=== PATIENT | male | born 1965 | race Caucasian/White ===

== ENCOUNTER 2016-11-01 23:22 | Emergency (ER) | payer MEDICARE, OTHER ==
[~2016-11-01] VITALS: Ht 177.8 cm; Wt 95.3 kg
[~2016-11-01 23:22] MED LIST: COREG3.125 MG ORAL; PRADAXA75 MG ORAL; TEMAZEPAM15 MG ORAL
[2016-11-01 23:40] VITALS: BP 110/85
[2016-11-02] VITALS: BP 107/81
[2016-11-02 00:17] LABS: BASOPHILS % (AUTO) 1.3 % (0.0-2.0); LYMPHOCYTES % (AUTO) 33.7 % (20.0-45.0); MEAN CORPUSCULAR HEMOGLOBIN 34.2 PG (27.0-31.0); MEAN CORPUSCULAR HGB CONC 35.2 G/DL (32.0-36.0); MEAN CORPUSCULAR VOLUME 97 FL (80-99); MEAN PLATELET VOLUME 8.2 FL (6.5-10.1); MONOCYTES % (AUTO) 14.5 % (1.0-10.0); NEUTROPHILS % (AUTO) 46.6 % (45.0-75.0); PLATELET COUNT 160 K/UL (150-450); RED CELL DISTRIBUTION WIDTH 11.2 % (11.6-14.8); WHITE BLOOD COUNT 7.8 K/UL (4.8-10.8)
--- NOTE | 2016-11-02 00:23 | Emergency Room Report ---
History of Present Illness General Chief Complaint: Chest Pain Source: Patient Present Illness HPI 51 YO M walk-in with chest pain tonight at friends house. Pain is 9/10, left sided, substernal non-radiating. No assoc sob, nausea/vomiting, sweating. Endorses history of Atrial fib - took Carvedilol BID and Pradaxa BID today. Smokes marijuana. Per EMR, had visit here last 2013. Was admitted for ACS but eloped prior to hospitalist assessing patient. Allergies: Coded Allergies: IBUPROFEN (Unverified Allergy, Unknown, 05/30/14) Patient History Past Medical History: other - AICD, HTN, Atrial Fib Past Surgical History: pacemaker Pertinent Family History: none Social History: Reports: drug use, smoking Immunizations: UTD Reviewed Nursing Documentation: PMH: Agreed, PSxH: Agreed Nursing Documentation-PMH Hx Cardiac Problems: Yes - Afib, Pacemaker, Defibrillator Review of Systems All Other Systems: negative except mentioned in HPI Physical Exam Vital Signs Date Time Temp Pulse Resp B/P Pulse Ox O2 Delivery O2 Flow Rate FiO2 11/01/16 23:32 97.9 37 17 110/85 94 Room Air Sp02 EP Interpretation: reviewed, abnormal, other - Triage vitals by RN are incorrect. On initial assessment, HR was 130s General Appearance: normal inspection, well appearing, no apparent distress, alert, GCS 15, non-toxic Head: normocephalic, atraumatic Eyes: bilateral eye EOMI, bilateral eye PERRL ENT: normal ENT inspection, hearing grossly normal, normal voice Neck: normal inspection, full range of motion, supple, thyroid normal, no meningismus, no bony tend Respiratory: normal inspection, lungs clear, normal breath sounds, no respiratory distress, no retraction, no wheezing Cardiovascular #1: no edema, irregularly irregular Gastrointestinal: normal inspection, normal bowel sounds, non tender, soft, no guarding, no hernia Genitourinary: no CVA tenderness Musculoskeletal: normal inspection, back normal, normal range of motion, Rose Mary' s Sign negative Neurologic: normal inspection, alert, oriented x3, responsive, transport medic III-XII nml as tested, speech normal Psychiatric: normal inspection, judgement/insight normal, mood/affect normal Skin: normal inspection, normal color, no rash, warm/dry Lymphatic: normal inspection Medical Decision Making Diagnostic Impression: Primary Impression: Chest pain Qualified Codes: R07.89 - Other chest pain Additional Impression: Atrial fibrillation Qualified Codes: I48.91 - Unspecified atrial fibrillation ER Course 51 YO M with episode of chest pain. CAD risk factors include HTN, Atrial fib, however BP normal here, Atrial fib is controlled, patient is compliant with meds When talking/agitated, patient's Afib would run to 140/150 When patient asleep, HR is 90 without intervention in ED ASA not given as patient on Pradaxa CXR unchanged from CXR in 2014: no PNA, PTX. + Cardiomegaly Labs: No leuks. H&H stable. No CMP abnormalities. Troponin 0 x2, Q4 hours ECG is Atrial Fib, TWI in v2,3,6 Utox + for MJ, opiates Low suspicion for ACS given 2x negative troponin Concern for narcotic seeking behavior with + opiates on Utox Advised to followup with Cardiology in 2-3 days EKG Diagnostic Results Rate: tachycardiac, other - trial fib ST Segments: no acute changes Rhythm Strip Diag. Results EP Interpretation: yes Rate: 80 Rhythm: other - +PVCs Chest X-Ray Diagnostic Results EP Interpretation: Yes Findings: no consolidation, no effusion, no pneumothorax, no acute cardiopulmonary disease Number of Views: 1 Last Vital Signs Date Time Temp Pulse Resp B/P Pulse Ox O2 Delivery O2 Flow Rate FiO2 11/01/16 23:40 98.0 90 15 110/85 100 Room Air Status: improved Disposition: HOME, SELF-CARE Condition: Improved Referrals: NOT CHOSEN IPA/,REFERRING (PCP) LUCINA ALMONTE M.D. Nov 02, 2016 00:23
[2016-11-02 00:36] LABS: ALANINE AMINOTRANSFERASE 43 U/L (3-41); ALBUMIN/GLOBULIN RATIO 1.4 (1.0-2.7); ANION GAP 13 (5-15); ASPARTATE AMINO TRANSFERASE 44 U/L (5-40); CALCIUM 9.2 mg/dL (8.6-10.2); CARBON DIOXIDE 28 mEQ/L (20-30); CHLORIDE 97 mEQ/L (98-107); CREATININE 0.8 mg/dL (0.7-1.2); GLOMERULAR FILTRATION RATE > 60 mL/min (>60); HEMOLYSIS 4; POTASSIUM 4.2 mEQ/L (3.4-4.9); SODIUM 138 mEQ/L (135-145); TOTAL PROTEIN 7.2 g/dL (6.6-8.7)
[2016-11-02 00:38] LABS: TROPONIN I < 0.30 ng/mL (<=0.30)
[2016-11-02 01:30] VITALS: BP 113/83
[2016-11-02 02:30] VITALS: BP 114/77
[2016-11-02 03:58] LABS: TROPONIN I < 0.30 ng/mL (<=0.30)
[2016-11-02 04:45] VITALS: BP_SYST 116; BP_DIAS 76; BP_DIAS 78
--- NOTE | 2016-11-02 12:28 | Diagnostic Imaging Report ---
Indication: Chest pain Technique: One view of the chest Comparison: 05/30/2014 Findings: There is some pleural fluid at the left lung base. There is probably also some parenchymal consolidation at the left lung base. There is atelectasis at the right lung base. The upper lung rizzo are clear. The heart size is upper limits of normal. There is a left chest AICD Impression: Left basilar pleural fluid and consolidation Right basilar atelectasis Other findings as noted
== END 2016-11-02 04:45 | disposition home or self-care (01) ==
LOC: EMR 23:45
DX: R07.9 Chest pain, unspecified (principal); F17.200 Nicotine dependence, unspecified, uncomplicated; I48.91 Unspecified atrial fibrillation; Z95.810 Presence of automatic (implantable) cardiac defibrillator; Z79.01 Long term (current) use of anticoagulants
CPT/HCPCS: 36415; 71010; 80053; 80300; 82550; 82553; 83880; 84484; 85025; 93005; 99283

== ENCOUNTER 2017-07-04 19:23 | Inpatient (IN) | payer MEDICARE, OTHER ==
[~2017-07-04] VITALS: Ht 177.8 cm; Wt 97.5 kg
[2017-07-04 19:23] VITALS: BP 152/104
[2017-07-04] MEDS ORDERED: Heparin 5000 units/ml inj IV ONE (19:30)
[2017-07-04 19:37] LABS: BASOPHILS % (AUTO) 1.2 % (0.0-2.0); EOSINOPHILS % (AUTO) 2.8 % (0.0-3.0); LYMPHOCYTES % (AUTO) 26.7 % (20.0-45.0); MEAN CORPUSCULAR HEMOGLOBIN 32.6 PG (27.0-31.0); MEAN CORPUSCULAR HGB CONC 32.6 G/DL (32.0-36.0); MEAN CORPUSCULAR VOLUME 100 FL (80-99); MEAN PLATELET VOLUME 7.8 FL (6.5-10.1); MONOCYTES % (AUTO) 9.8 % (1.0-10.0); NEUTROPHILS % (AUTO) 59.4 % (45.0-75.0); PLATELET COUNT 184 K/UL (150-450); RED BLOOD COUNT 4.91 M/UL (4.70-6.10); RED CELL DISTRIBUTION WIDTH 11.3 % (11.6-14.8); WHITE BLOOD COUNT 11.7 K/UL (4.8-10.8)
[2017-07-04 19:45] LABS: PROTHROMBIN TIME 10.2 SEC (9.30-11.50)
[2017-07-04] MEDS ORDERED: Morphine Sulfate 2mg/ml Inj IVP ONE ×4 (19:45)
[2017-07-04] MEDS ORDERED: Morphine Sulfate 4mg/ml Inj IVP ONE (19:45)
[2017-07-04 20:10] LABS: ALANINE AMINOTRANSFERASE 48 U/L (12-78); ANION GAP 10 mmol/L (5-15); ASPARTATE AMINO TRANSFERASE 32 U/L (15-37); CALCIUM 9.4 MG/DL (8.5-10.1); CARBON DIOXIDE 25 MMOL/L (21-32); CHLORIDE 107 MMOL/L (98-107); CKMB 0.7 NG/ML (0.0-3.6); CREATININE 0.8 MG/DL (0.55-1.30); GLOMERULAR FILTRATION RATE > 60 mL/min (>60); POTASSIUM 4.3 MMOL/L (3.5-5.1); SODIUM 142 MMOL/L (136-145); TOTAL PROTEIN 8.1 G/DL (6.4-8.2)
--- NOTE | 2017-07-04 20:24 | Emergency Room Report ---
History of Present Illness General Chief Complaint: Chest Pain Source: Patient Present Illness HPI 52-year-old male with pmhx of HTN, DM, A. fib on eliquis pacemaker and defibrillator, p/w chest pain for 30 minutes. Chest pain started suddenly. Localized to substernal area, no radiation to back or other areas, sharp in nature, gradual in onset, also complains of SOB. + diaphoresis, no n/v. This is the first occurrence of chest pain. Denies fever, chills, cough, abd pain. Denies trauma. Patient states that his last cardiac catheterization was 4 years ago and he was told that he has clean coronaries Patient was given 325 mg aspirin by EMS States that he is allergic to nitroglycerin Allergies: Coded Allergies: GENTAMICIN (Unverified Allergy, Unknown, 07/04/17) IBUPROFEN (Unverified Allergy, Unknown, 05/30/14) NITROGLYCERIN (Unverified Allergy, Unknown, 07/04/17) Patient History Past Medical History: see triage record Past Surgical History: none Pertinent Family History: none Reviewed Nursing Documentation: PMH: Agreed, PSxH: Agreed Nursing Documentation-PMH Hx Cardiac Problems: Yes - CHF, AFIB, 2WIRE PACEMAKER, CARDIOMYOPATHY History Of Psychiatric Problem: Yes - BIPOLAR AND PANIC DISORDER Review of Systems All Other Systems: negative except mentioned in HPI Physical Exam Vital Signs Date Time Temp Pulse Resp B/P (MAP) Pulse Ox O2 Delivery O2 Flow Rate FiO2 07/04/17 19:13 99.0 115 21 152/104 92 Room Air Sp02 EP Interpretation: reviewed, normal General Appearance: alert, GCS 15, non-toxic, severe distress, other - Diaphoretic middle-aged man, appears to be in pain Head: normocephalic, atraumatic Eyes: bilateral eye normal inspection, bilateral eye PERRL, bilateral eye EOMI ENT: normal ENT inspection, normal pharynx, normal voice, moist mucus membranes Neck: normal inspection, full range of motion, supple Respiratory: normal inspection, lungs clear, normal breath sounds, no respiratory distress, no retraction, no wheezing, speaking full sentences, chest symmetrical Cardiovascular #1: normal inspection, no edema, normal capillary refill, tachycardia Cardiovascular #2: 2+ radial (R), 2+ radial (L) Gastrointestinal: normal inspection, non tender, soft, non-distended, no guarding Genitourinary: no CVA tenderness Musculoskeletal: normal inspection, back normal, normal range of motion, non- tender Neurologic: normal inspection, alert, oriented x3, responsive, motor strength/ tone normal, sensory intact, normal gait, speech normal Psychiatric: normal inspection, judgement/insight normal, memory normal Skin: normal inspection, normal color, no rash, warm/dry, well hydrated, normal turgor Medical Decision Making Diagnostic Impression: Primary Impression: ACS (acute coronary syndrome) ER Course 52-year-old male presents with chest pain DDX: ACS vs. CHF vs. pneumonia vs. gastritis/GERD vs. pneumothorax Plan: IV access, obtain labs including troponin, EKG, CXR ASA given by EMS, pain control with morphine Anticipate admission ER course: Patient was treated with ASA by EMS Pain was treated with morphine a total of 8 mg Patient has a remain tachycardic ST elevation noted in inferior leads, faxed EKG to [facility] 10 min after arrival, as it was difficult to obtain good ekg as patient could not remain still Patient received heparin bolus, and 1 L fluids Does not believe that this is acute STEMI Patient feels much better after 8 mg of morphine On previous chart review, patient was noted to leave AMA after being admitted for ACS Possible drug-seeking behavior Patient now improved, appears more comfortable, given Ativan, awake and alert pain much improved Troponin is negative Disposition: Patient requires admission for chest pain. Due to patient's history and comorbidities, patient has increased risk of acute cardiac event. Patient requires admission for further workup, serial troponin, and possible stress test/cath inpatient. D/W hospitalist Dr Soaers Please note that this Emergency Department Report was dictated using [employer]ate[employer] clerk technology software, occasionally this can lead to erroneous entry secondary to interpretation by the dictation equipment. EKG Diagnostic Results EP Interpretation: Yes Rate: normal Rhythm: paced ST Segments: ST elevation ASA given to patient: Y Rhythm Strip EP Interpretation: Yes Rate: 92 Rhythm: intermittently paced rhythm Chest X-ray CXR: Ordered: Yes 1 view Indication: Chest pain EP interpretation: Yes Interpretation: No consolidation, no effusion, no PTX, no acute cardiopulmonary disease Impression: No acute disease Electronically signed by Juan Carlos Marx MD Laboratory Tests Test 07/04/17 19:29 White Blood Count 11.7 K/UL (4.8-10.8) H Red Blood Count 4.91 M/UL (4.70-6.10) Hemoglobin 16.0 G/DL (14.2-18.0) Hematocrit 49.2 % (42.0-52.0) Mean Corpuscular Volume 100 FL (80-99) H Mean Corpuscular Hemoglobin 32.6 PG (27.0-31.0) H Mean Corpuscular Hemoglobin Concent 32.6 G/DL (32.0-36.0) Red Cell Distribution Width 11.3 % (11.6-14.8) L Platelet Count 184 K/UL (150-450) Mean Platelet Volume 7.8 FL (6.5-10.1) Neutrophils (%) (Auto) 59.4 % (45.0-75.0) Lymphocytes (%) (Auto) 26.7 % (20.0-45.0) Monocytes (%) (Auto) 9.8 % (1.0-10.0) Eosinophils (%) (Auto) 2.8 % (0.0-3.0) Basophils (%) (Auto) 1.2 % (0.0-2.0) Prothrombin Time 10.2 SEC (9.30-11.50) Prothrombin Time INR 1.0 (0.9-1.1) PTT 28 SEC (23-33) Sodium Level 142 MMOL/L (136-145) Potassium Level 4.3 MMOL/L (3.5-5.1) Chloride Level 107 MMOL/L (98-107) Carbon Dioxide Level 25 MMOL/L (21-32) Anion Gap 10 mmol/L (5-15) Blood Urea Nitrogen 21 mg/dL (7-18) H Creatinine 0.8 MG/DL (0.55-1.30) Estimate Glomerular Filtration Rate > 60 mL/min (>60) Glucose Level 95 MG/DL (74-106) Calcium Level 9.4 MG/DL (8.5-10.1) Total Bilirubin 0.6 MG/DL (0.2-1.0) Aspartate Amino Transferase (AST) 32 U/L (15-37) Alanine Aminotransferase (ALT) 48 U/L (12-78) Alkaline Phosphatase 55 U/L (46-116) Total Creatine Kinase 72 U/L (26-308) Creatine Kinase MB 0.7 NG/ML (0.0-3.6) Creatine Kinase MB Relative Index 0.9 Troponin I 0.005 ng/mL (0.000-0.056) Pro-B-Type Natriuretic Peptide 348 pg/mL (0-125) H Total Protein 8.1 G/DL (6.4-8.2) Albumin 4.1 G/DL (3.4-5.0) Globulin 4.0 g/dL Albumin/Globulin Ratio 1.0 (1.0-2.7) Last Vital Signs Date Time Temp Pulse Resp B/P (MAP) Pulse Ox O2 Delivery O2 Flow Rate FiO2 07/04/17 19:23 56 21 Room Air 07/04/17 19:23 99.0 152/104 92 Juan Carlos Marx M.D. Jul 04, 2017 20:24
[2017-07-04] MEDS ORDERED: LORazepam Inj 2mg/ml 1ml IV ONE (21:00)
[2017-07-04 21:23] VITALS: BP 155/88
[2017-07-04 23:23] VITALS: BP 132/95
[2017-07-05] VITALS (7 sets, daily range): BP systolic 115–146; BP diastolic 70–101
[2017-07-05] MEDS ORDERED: PRADAXA150 MG ORAL (00:34)
[2017-07-05] MEDS ORDERED: ALUM-MAG HYDRO360 ML PO (00:34)
[2017-07-05] MEDS ORDERED: ROXICODONE15 MG ORAL (00:34)
[2017-07-05] MEDS ORDERED: COREG6.25 MG ORAL (00:34)
[2017-07-05] MEDS ORDERED: KLONOPIN1 MG ORAL (00:34)
[2017-07-05] MEDS ORDERED: XARELTO20 MG ORAL (00:34)
[2017-07-05] MEDS ORDERED: MILK OF MA400 MG/51 ORAL (00:34)
[2017-07-05] MEDS ORDERED: ACETAMINOPHEN325 M1 ORAL (00:34)
[2017-07-05] MEDS ORDERED: LORAZEPAM1 MG ORAL (00:34)
[2017-07-05] MEDS ORDERED: NORCO 5-325 TA1 EACH ORAL (00:34)
[2017-07-05] MEDS ORDERED: CELEXA10 MG ORAL (00:34)
[2017-07-05] MEDS ORDERED: DIGOXIN125 MCG ORAL (00:34)
[2017-07-05] MEDS ORDERED: TEMAZEPAM15 MG ORAL (00:34)
[2017-07-05] MEDS ORDERED: MELOXICAM15 MG PO (00:34)
[2017-07-05] MEDS ORDERED: oxyCODONE 15mg IR tab ORAL PRN (01:30)
[2017-07-05] MEDS ORDERED: Miralax 17gm pkt ORAL PRN (01:30)
[2017-07-05] MEDS ORDERED: Enalaprilat 2.5mg/2ml Inj IV PRN (01:30)
[2017-07-05] MEDS ORDERED: Albuterol/Ipratropium 3ml neb HHN PRN (01:30)
[2017-07-05] MEDS ORDERED: dilTIAZem HCl 25mg/5ml Inj IV PRN (01:30)
[2017-07-05] MEDS: Morphine Sulfate 2mg/ml Inj IVP PRN ×5 (02:11→22:03)
[2017-07-05] MEDS: LORazepam Inj 2mg/ml 1ml IV PRN ×4 (02:31→20:00)
[2017-07-05] MEDS: Citalopram Hydrobromide 10mg Tab ORAL SCH (08:25)
[2017-07-05] MEDS: Digoxin 0.125mg tab ORAL SCH (08:26)
[2017-07-05] MEDS ORDERED: Carvedilol 25mg Tab ORAL SCH (09:00)
--- NOTE | 2017-07-05 10:04 | Diagnostic Imaging Report ---
Indication: Chest pain Technique: One view of the chest Comparison: 11/01/2016 Findings: Again demonstrated is a biventricular AICD. There is also a transcutaneous pacer pad overlying the right chest. The lungs and pleural spaces are clear. The heart is mildly enlarged. Impression: No acute process Cardiomegaly Other findings as described
[2017-07-05] MEDS ORDERED: Flu Vaccine Quadrivalent 0.5ml IM ONE (12:00)
[2017-07-05] MEDS ORDERED: Pneumococcal Vaccine 25mcg/0.5ml IM ONE (12:00)
--- NOTE | 2017-07-05 12:36 | History and Physical ---
History of Present Illness General Date patient seen: Jul 05, 2017 Reason for Hospitalization: Chest Pain Present Illness HPI 52-year-old male with pmhx of HTN, DM, A. fib on eliquis pacemaker and defibrillator, p/w chest pain for 30 minutes. Chest pain started suddenly. Localized to substernal area, no radiation to back or other areas, sharp in nature, gradual in onset, also complains of SOB. + diaphoresis, no n/v. His EKG was faxed to [facility], He was not a candidate for acute intervention. Allergies: Coded Allergies: GENTAMICIN (Unverified Allergy, Unknown, 07/04/17) IBUPROFEN (Unverified Allergy, Unknown, 05/30/14) NITROGLYCERIN (Unverified Allergy, Unknown, 07/04/17) Medication History Scheduled Carvedilol (Coreg), 25 MG ORAL EVERY 12 HOURS, (Reported) Carvedilol (Coreg), 6.25 MG ORAL EVERY 12 HOURS, (Reported) Citalopram Hydrobromide (Celexa), 10 MG ORAL DAILY, (Reported) Clonazepam* (Klonopin*), 1 MG ORAL BID, (Reported) Dabigatran Etexilate Mesylate (Pradaxa), 150 MG ORAL DAILY, (Reported) Dabigatran Etexilate Mesylate* (Pradaxa*), 150 MG ORAL DAILY, (Reported) Digoxin* (Digoxin*), 62.5 MCG ORAL DAILY, (Reported) Magnesium Hydroxide* (Milk Of Magnesia*), 30 ML ORAL Q6HR, (Reported) Meloxicam* (Meloxicam*), 15 MG PO DAILY, (Reported) Rivaroxaban (Xarelto), 20 MG ORAL DAILY, (Reported) Temazepam (Temazepam*), 30 MG ORAL BEDTIME, (Reported) Temazepam (Temazepam*), 15 MG ORAL BEDTIME, (Reported) Scheduled PRN Acetaminophen* (Acetaminophen 325MG Tablet*), 650 MG ORAL Q4H PRN for Mild Pain (Pain Scale 1-3), (Reported) Hydrocodone Bit/Acetaminophen 5-325* ([place] 5-325*), 1 TAB ORAL Q8HR PRN for For Pain, (Reported) Lorazepam* (Lorazepam*), 1 MG ORAL EVERY 6 HOURS PRN for For Anxiety, (Reported) OXYCODONE HCl* (Roxicodone*), 15 MG ORAL Q8HR PRN for Severe Pain (Pain Scale 7- 10), (Reported) Miscellaneous Medications Mag Hydrox/Al Hydrox/Simeth (Alum-Mag Hydroxide-Simeth Liq), 200 ML PO, ( Reported) Patient History Healthcare decision maker Resuscitation status Full Code Advanced Directive on File Past Medical/Surgical History Past Medical/Surgical History: (1) Atrial fibrillation (2) AICD (automatic cardioverter/defibrillator) present (3) Anxiety Review of Systems Constitutional: Reports: no symptoms Eye: Reports: no symptoms Physical Exam General Appearance: WD/WN Lines, tubes and drains: peripheral HEENT: normocephalic, atraumatic, PERRL Neck: non-tender Respiratory/Chest: chest wall non-tender, lungs clear, decreased breath sounds Breasts: no masses Cardiovascular/Chest: normal peripheral pulses Abdomen: normal bowel sounds, soft, hyperactive bowel sounds Genitourinary/Rectal: normal rectal exam, normal prostate exam Extremities: normal range of motion Last 24 Hour Vital Signs Date Time Temp Pulse Resp B/P (MAP) Pulse Ox O2 Delivery O2 Flow Rate FiO2 07/05/17 11:26 96.6 76 20 146/92 95 Room Air 07/05/17 08:34 103 20 Room Air 07/05/17 08:30 97.5 64 20 130/95 91 Room Air 07/05/17 08:26 108 07/05/17 08:25 108 115/70 07/05/17 08:00 108 07/05/17 04:00 97.0 79 20 115/70 98 Room Air 07/05/17 04:00 108 07/05/17 01:40 97.7 94 20 120/95 99 Room Air 07/05/17 00:51 98.4 78 17 135/99 97 Room Air 07/05/17 00:51 98.4 78 17 135/99 97 Room Air 07/04/17 23:23 98.4 95 19 132/95 97 Room Air 07/04/17 21:23 98.8 88 18 155/88 97 Room Air 07/04/17 20:19 98.8 07/04/17 20:19 98.8 07/04/17 20:19 98.8 07/04/17 20:19 98.8 07/04/17 19:23 56 21 Room Air 07/04/17 19:23 99.0 56 21 152/104 92 Room Air 07/04/17 19:13 99.0 115 21 152/104 92 Room Air Intake and Output 07/05/17 07/06/17 19:00 07:00 Intake Total 240 ml Balance 240 ml Intake Oral 240 ml Laboratory Tests Test 07/04/17 19:29 07/05/17 08:00 White Blood Count 11.7 K/UL (4.8-10.8) H Red Blood Count 4.91 M/UL (4.70-6.10) Hemoglobin 16.0 G/DL (14.2-18.0) Hematocrit 49.2 % (42.0-52.0) Mean Corpuscular Volume 100 FL (80-99) H Mean Corpuscular Hemoglobin 32.6 PG (27.0-31.0) H Mean Corpuscular Hemoglobin Concent 32.6 G/DL (32.0-36.0) Red Cell Distribution Width 11.3 % (11.6-14.8) L Platelet Count 184 K/UL (150-450) Mean Platelet Volume 7.8 FL (6.5-10.1) Neutrophils (%) (Auto) 59.4 % (45.0-75.0) Lymphocytes (%) (Auto) 26.7 % (20.0-45.0) Monocytes (%) (Auto) 9.8 % (1.0-10.0) Eosinophils (%) (Auto) 2.8 % (0.0-3.0) Basophils (%) (Auto) 1.2 % (0.0-2.0) Prothrombin Time 10.2 SEC (9.30-11.50) Prothromb Time International Ratio 1.0 (0.9-1.1) Activated Partial Thromboplast Time 28 SEC (23-33) Sodium Level 142 MMOL/L (136-145) Potassium Level 4.3 MMOL/L (3.5-5.1) Chloride Level 107 MMOL/L (98-107) Carbon Dioxide Level 25 MMOL/L (21-32) Anion Gap 10 mmol/L (5-15) Blood Urea Nitrogen 21 mg/dL (7-18) H Creatinine 0.8 MG/DL (0.55-1.30) Estimat Glomerular Filtration Rate > 60 mL/min (>60) Glucose Level 95 MG/DL (74-106) Calcium Level 9.4 MG/DL (8.5-10.1) Total Bilirubin 0.6 MG/DL (0.2-1.0) Aspartate Amino Transf (AST/SGOT) 32 U/L (15-37) Alanine Aminotransferase (ALT/SGPT) 48 U/L (12-78) Alkaline Phosphatase 55 U/L (46-116) Total Creatine Kinase 72 U/L (26-308) Creatine Kinase MB 0.7 NG/ML (0.0-3.6) Creatine Kinase MB Relative Index 0.9 Troponin I 0.005 ng/mL (0.000-0.056) 0.005 ng/mL (0.000-0.056) Pro-B-Type Natriuretic Peptide 348 pg/mL (0-125) H Total Protein 8.1 G/DL (6.4-8.2) Albumin 4.1 G/DL (3.4-5.0) Globulin 4.0 g/dL Albumin/Globulin Ratio 1.0 (1.0-2.7) Height (Feet): 5 Height (Inches): 10.00 Weight (Pounds): 215 Medications Current Medications Medications (Trade) Dose Ordered Sig/Wm Route PRN Reason Start Time Stop Time Status Last Admin Dose Admin Acetaminophen (Tylenol) 650 mg Q4H PRN ORAL FEVER 07/05/17 01:30 08/04/17 01:29 Albuterol/ Ipratropium (Albuterol/ Ipratropium) 3 ml Q4H PRN HHN Shortness of Breath 07/05/17 01:30 07/10/17 01:29 Carvedilol (Coreg) 25 mg EVERY 12 HOURS ORAL 07/05/17 09:00 08/04/17 08:59 07/05/17 08:25 Citalopram Hydrobromide (celeXA) 10 mg DAILY ORAL 07/05/17 09:00 08/04/17 08:59 07/05/17 08:25 Dabigatran (Pradaxa) 150 mg DAILY ORAL 07/05/17 09:00 08/04/17 08:59 UNV Digoxin (Lanoxin) 0.0625 mg DAILY ORAL 07/05/17 09:00 08/04/17 08:59 07/05/17 08:26 Diltiazem HCl (Cardizem) 10 mg Q1H PRN IV heart rate more than 120, 07/05/17 01:30 08/04/17 01:29 Enalaprilat (Vasotec) 2.5 mg Q6H PRN IV sbp more than 160 07/05/17 01:30 08/04/17 01:29 Lorazepam (Ativan 2mg/ml 1ml) 1 mg Q4H PRN IV For Anxiety 07/05/17 01:45 07/12/17 01:44 07/05/17 08:22 Morphine Sulfate (Morphine Sulfate) 2 mg Q4H PRN IVP severe Pain (Pain Scale 7-10) 07/05/17 01:30 07/12/17 01:29 07/05/17 11:17 Ondansetron HCl (Zofran) 4 mg Q6H PRN IVP Nausea & Vomiting 07/05/17 01:30 08/04/17 01:29 Oxycodone HCl (Roxicodone) 15 mg Q8H PRN ORAL Severe Pain (Pain Scale 7-10) 07/05/17 01:30 07/12/17 01:29 Polyethylene Glycol (Miralax) 17 gm DAILYPRN PRN ORAL Constipation 07/05/17 01:30 08/04/17 01:29 Temazepam (Restoril) 15 mg HSPRN PRN ORAL Insomnia 07/05/17 01:30 07/12/17 01:29 Assessment/Plan Problem List: (1) ACS (acute coronary syndrome) ICD Codes: I20.0 - Unstable angina SNOMED: 212304782 (2) Atrial fibrillation ICD Codes: I48.91 - Unspecified atrial fibrillation SNOMED: 79420158 (3) Chronic back pain ICD Codes: M54.9 - Dorsalgia, unspecified; G89.29 - Other chronic pain SNOMED: 186460826 (4) AICD (automatic cardioverter/defibrillator) present ICD Codes: Z95.810 - Presence of automatic (implantable) cardiac defibrillator SNOMED: 85290339, 793621767 (5) Anxiety ICD Codes: F41.9 - Anxiety disorder, unspecified SNOMED: 09738941 Assessment/Plan serial ekg, troponin, echo cardiology evaluation pain management MARCIN RIVERA Jul 05, 2017 12:35
--- NOTE | 2017-07-05 15:37 | Cardiology Report ---
APPROVED REPORT EXAM: Two-dimensional and M-mode echocardiogram with Doppler and color Doppler. INDICATION Left Ventricular Function M-Mode DIMENSIONS IVSd1.4 (0.7-1.1cm)Left Atrium (MM)5.0 (1.6-4.0cm) LVDd5.7 (3.5-5.6cm)Aortic Root3.3 (2.0-3.7cm) PWd1.0 (0.7-1.1cm)Aortic Cusp Exc.2.2 (1.5-2.0cm) LVDs4.3 (2.5-4.0cm) PWs1.9 cm Technically difficult study due to poor acoustic windows. Mild left ventricular enlargement. LV mid to distal hypokinesis. Abnormal basal inferoseptum movement. Global left ventricular hypokinesis. Left ventricular ejection fraction estimated to be 40 %. Mild left ventricular hypertrophy. Anterior Echo-free space, may be due to pericardial fat or effusion. All other cardiac chamber sizes are within normal limits. Mild left atrial enlargement. Moderate right atrial enlargement. Normal right ventricular chamber size. Mild focal aortic valve sclerosis with adequate cusp excursion. Mildly thickened mitral valve leaflets with normal excursion. Mild mitral annulus and aortic root calcification. Normal pulmonic valve structure. Normal tricuspid valve structure. IVC dilated at 2.3 cm without physiologic collapse, estimated RAP is 10 mmHg. Pacemaker wire present in the right side chambers. A color flow and spectral Doppler study was performed and revealed: No aortic regurgitation. Mild mitral regurgitation. Left ventricular diastolic function cannot be determined due to A-Fib. Mild tricuspid regurgitation. Tricuspid systolic velocities suggests peak right ventricular systolic pressure of 26 mmHg. Mild pulmonic regurgitation present.
--- NOTE | 2017-07-05 18:58 | Cardiology Progress Note ---
Assessment/Plan Assessment/Plan [id number] reportedly pristine arteries on cath at [facility] 4-5 years ago per pt guideline directed med therapy Objective Last 24 Hour Vital Signs Date Time Temp Pulse Resp B/P (MAP) Pulse Ox O2 Delivery O2 Flow Rate FiO2 07/05/17 16:00 75 07/05/17 15:52 98.8 85 20 145/76 93 Room Air 07/05/17 12:00 77 07/05/17 11:26 96.6 76 20 146/92 95 Room Air 07/05/17 08:34 103 20 Room Air 07/05/17 08:30 97.5 64 20 130/95 91 Room Air 07/05/17 08:26 108 07/05/17 08:25 108 115/70 07/05/17 08:00 108 07/05/17 04:00 97.0 79 20 115/70 98 Room Air 07/05/17 04:00 108 07/05/17 01:40 97.7 94 20 120/95 99 Room Air 07/05/17 00:51 98.4 78 17 135/99 97 Room Air 07/05/17 00:51 98.4 78 17 135/99 97 Room Air 07/04/17 23:23 98.4 95 19 132/95 97 Room Air 07/04/17 21:23 98.8 88 18 155/88 97 Room Air 07/04/17 20:19 98.8 07/04/17 20:19 98.8 07/04/17 20:19 98.8 07/04/17 20:19 98.8 07/04/17 19:23 56 21 Room Air 07/04/17 19:23 99.0 56 21 152/104 92 Room Air 07/04/17 19:13 99.0 115 21 152/104 92 Room Air Intake and Output 07/05/17 07/06/17 19:00 07:00 Intake Total 840 ml Balance 840 ml Intake Oral 840 ml # Voids 1 Laboratory Tests Test 07/04/17 19:29 07/05/17 08:00 White Blood Count 11.7 K/UL (4.8-10.8) H Red Blood Count 4.91 M/UL (4.70-6.10) Hemoglobin 16.0 G/DL (14.2-18.0) Hematocrit 49.2 % (42.0-52.0) Mean Corpuscular Volume 100 FL (80-99) H Mean Corpuscular Hemoglobin 32.6 PG (27.0-31.0) H Mean Corpuscular Hemoglobin Concent 32.6 G/DL (32.0-36.0) Red Cell Distribution Width 11.3 % (11.6-14.8) L Platelet Count 184 K/UL (150-450) Mean Platelet Volume 7.8 FL (6.5-10.1) Neutrophils (%) (Auto) 59.4 % (45.0-75.0) Lymphocytes (%) (Auto) 26.7 % (20.0-45.0) Monocytes (%) (Auto) 9.8 % (1.0-10.0) Eosinophils (%) (Auto) 2.8 % (0.0-3.0) Basophils (%) (Auto) 1.2 % (0.0-2.0) Prothrombin Time 10.2 SEC (9.30-11.50) Prothromb Time International Ratio 1.0 (0.9-1.1) Activated Partial Thromboplast Time 28 SEC (23-33) Sodium Level 142 MMOL/L (136-145) Potassium Level 4.3 MMOL/L (3.5-5.1) Chloride Level 107 MMOL/L (98-107) Carbon Dioxide Level 25 MMOL/L (21-32) Anion Gap 10 mmol/L (5-15) Blood Urea Nitrogen 21 mg/dL (7-18) H Creatinine 0.8 MG/DL (0.55-1.30) Estimat Glomerular Filtration Rate > 60 mL/min (>60) Glucose Level 95 MG/DL (74-106) Calcium Level 9.4 MG/DL (8.5-10.1) Total Bilirubin 0.6 MG/DL (0.2-1.0) Aspartate Amino Transf (AST/SGOT) 32 U/L (15-37) Alanine Aminotransferase (ALT/SGPT) 48 U/L (12-78) Alkaline Phosphatase 55 U/L (46-116) Total Creatine Kinase 72 U/L (26-308) Creatine Kinase MB 0.7 NG/ML (0.0-3.6) Creatine Kinase MB Relative Index 0.9 Troponin I 0.005 ng/mL (0.000-0.056) 0.005 ng/mL (0.000-0.056) Pro-B-Type Natriuretic Peptide 348 pg/mL (0-125) H Total Protein 8.1 G/DL (6.4-8.2) Albumin 4.1 G/DL (3.4-5.0) Globulin 4.0 g/dL Albumin/Globulin Ratio 1.0 (1.0-2.7) PAWAN MTZ Jul 05, 2017 18:58
[2017-07-05] MEDS: Carvedilol 6.25mg Tab ORAL SCH (21:12)
[2017-07-06] MEDS: Morphine Sulfate 10mg/5ml Oral Soln ud ORAL PRN ×2 (00:16→05:18)
[2017-07-06 00:22] VITALS: BP 129/98
[2017-07-06] MEDS: Morphine Sulfate 2mg/ml Inj IVP PRN ×2 (02:18→09:07)
[2017-07-06 04:16] VITALS: BP 114/78
[2017-07-06] MEDS: LORazepam Inj 2mg/ml 1ml IV PRN (06:14)
[2017-07-06 08:00] LABS: EOSINOPHILS % (AUTO) 3.7 % (0.0-3.0); LYMPHOCYTES % (AUTO) 15.9 % (20.0-45.0); MEAN CORPUSCULAR HEMOGLOBIN 35.2 PG (27.0-31.0); MEAN CORPUSCULAR HGB CONC 35.1 G/DL (32.0-36.0); MEAN CORPUSCULAR VOLUME 100 FL (80-99); MEAN PLATELET VOLUME 8.4 FL (6.5-10.1); MONOCYTES % (AUTO) 12.1 % (1.0-10.0); NEUTROPHILS % (AUTO) 67.5 % (45.0-75.0); PLATELET COUNT 160 K/UL (150-450); RED BLOOD COUNT 4.23 M/UL (4.70-6.10); WHITE BLOOD COUNT 7.3 K/UL (4.8-10.8)
[2017-07-06 08:08] LABS: INR 0.9 (0.9-1.1); PROTHROMBIN TIME 9.9 SEC (9.30-11.50)
[2017-07-06 08:18] VITALS: BP 143/97
[2017-07-06 08:42] LABS: CHOLESTEROL 116 MG/DL (< 200); CHOLESTEROL/HDL RATIO 1.9 (3.3-4.4); THYROID STIMULATING HORMONE 1.277 uiU/mL (0.360-3.740)
[2017-07-06 08:48] LABS: CRP QUANT < 0.0 mg/dL (0.00-0.90)
[2017-07-06] MEDS ORDERED: Morphine Sulfate 4mg/ml Inj ONE ×2 (08:49→08:58)
[2017-07-06] MEDS ORDERED: Xarelto 10mg tab ORAL SCH (09:00)
[2017-07-06] MEDS: Citalopram Hydrobromide 10mg Tab ORAL SCH (09:05)
[2017-07-06] MEDS: Digoxin 0.125mg tab ORAL SCH (09:05)
[2017-07-06 09:06] VITALS: BP 143/97
[2017-07-06] MEDS: Carvedilol 6.25mg Tab ORAL SCH (09:06)
--- NOTE | 2017-07-06 10:15 | Consultation ---
DATE OF CONSULTATION: 07/05/2017 CARDIOLOGY CONSULTATION CONSULTING PHYSICIAN: Grabiel Wall M.D. REFERRING PHYSICIAN: Keith Soares M.D. REASON FOR REFERRAL: Chest pain. HISTORY OF PRESENT ILLNESS: This is a middle-aged gentleman who has a history of cardiomyopathy, atrial fibrillation that is permanent. He has had atrial fibrillation on prior occasions. He says he has had several other issues including cardiac arrest and cardiomyopathy with ejection fractions down into 20s, eventually up to the 30s. He has had a defibrillator placed and subsequently had a generator replacement approximately 5 months ago and has been at [facility] apparently and has subsequently transferred to a convalescent facility. In the convalescent facility, he was unable to get his Klonopin and eventually was having a lot of reaction to withdrawal from that including palpitations and chest pains and eventually got very concerned. Paramedics were summoned. The patient was brought to the emergency room. He says that initially in the emergency room, they thought that he was having a heart attack. They were trying to transfer him to [facility], but apparently that did not happen. Nevertheless, apparently, that was not an issue subsequently according to his description. He indicates the patient has been admitted to the hospital here at [facility] and is now doing better, although he still has not got his Klonopin the way he wants to and he is still feeling somewhat anxious. The records from [facility] evaluation have indicated that the patient has had atypical chest pain, asking for narcotic, using chest pain as a way to ask for narcotics. However, all cardiac enzymes are negative. PAST MEDICAL HISTORY: Positive for history of as mentioned cardiomyopathy and questionable SD, although he questions if that is actually accurate, but he has a pacemaker defibrillator in place. He had cardiomyopathy in 2008 eventually, ejection fraction was 20%. Over the next ensuing few years, he has had improvement in his ejection fraction in the 40s. He also has a history of hypertensive heart disease, congestive heart failure, chronic pain syndrome, atrial fibrillation, and has had endocarditis. He says that he has had fasciectomy. The patient has had a cardiac catheterization according to himself that was performed 4-5 years ago at [facility] and he was told that his "his arteries are pristine". ALLERGIES: Gentamicin, nitroglycerin, and ibuprofen. SOCIAL HISTORY: He was born in [place]. He grew up in [place]. parents were . The patient indicates that he saw his father to have a nervous breakdown. He is the youngest of all siblings, has never . The patient has 2 biological sons. 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 REVIEW OF SYSTEMS: Review of systems is very difficult to obtain. The patient has multiple tangential responses. PHYSICAL EXAMINATION: GENERAL: Physical examination shows him to be in no respiratory distress. He appears quite anxious and at times angry with the history that he provides me with his events that [facility] where he [facility] transferred out of and at times quite angry and anxious and at times tearful. He even walked outside running after me in the halls to tell me more information about his likes and dislikes. NECK: Anyway his neck is supple. No jugular venous distention. LUNGS: Clear to auscultation and percussion. CARDIAC: Irregular, not tachycardic, not bradycardic. No heaves, thrills, or gallops noted. ABDOMEN: Soft and nontender. Positive bowel sounds. EXTREMITIES: There is no clubbing, cyanosis, nor edema. NEUROLOGICAL: He is awake, alert, responsive, and as mentioned, he is quite agile and is mobile from the room to outside. LABORATORY AND DIAGNOSTIC DATA: Telemetry shows atrial fibrillation, ventricular paced rhythm. Echocardiogram preliminary report shows EF of 40%, IVC of 2.3 without physiological collapse. Moderate right atrial enlargement, right ventricular size, aortic cusp sclerosis, no aortic regurgitation, mild mitral regurgitation, and tricuspid regurgitation. Pulmonary systolic pressures of 26. His EKG again shows atrial fibrillation with ventricular response, appears to be relatively controlled. He has intermittent V-pacing and intermittent spontaneous conduction. His other laboratories include white count 11.7. Hemoglobin 16 and platelet count of 184. His sodium 140, potassium 4.3, chloride 107, bicarbonate 25, BUN is 21, creatinine 0.8, and glucose of 95. Two sets of cardiac enzymes negative. ProBNP is only 340. Liver function tests are normal. Coagulations, INR 1.0. A chest x-ray was performed showing no acute processes. Cardiomegaly was noted. An echocardiogram on final reading shows global hypokinesis, ejection fraction of 40%. His vital signs is blood pressure is 145/76 with a heart rate of 85, temperature 98.8 degrees. ASSESSMENT AND PLAN: 1. Cardiomyopathy, likely nonischemic. 2. History of atrial fibrillation, permanent. 3. History of intracardiac defibrillator placement. 4. History of possibly cardiac arrest, not confirmed. 5. History of recurrent chest pains. 6. Severe anxiety. 7. History of medication-seeking behavior according to old records. Dr. Soares, this patient was seen in cardiac consultation in light of the fact that he has had a cardiac catheterization and was told he had pristine vessels, I doubt that he had coronary syndrome. Most likely his symptoms are related to anxiety. Because he has these episodes of chest pain that he describes as a "bang", I would have his intracardiac defibrillator interrogated to make sure he does not have any ICD discharges and to address if there were any discharges. In the meantime, he should be continued on his medication. He should be on chronic anticoagulation for stroke prevention. He previously apparently was on Xarelto, but he was switched to Eliquis and that he could be continued on either of those medication. Coreg 6.25 mg twice a day to be continued and digoxin 0.125 mg, he says he has been taking previously and I am not sure why he is not on any SLICK inhibitors, but should be considered per guideline directed medical therapy and he should certainly be seen by psychiatry for further evaluation. Grabiel Wall M.D. DR: ELDER JOB#: [id number] CC:
--- NOTE | 2017-07-06 10:26 | Consultation ---
History of Present Illness General Date patient seen: Jul 06, 2017 Chief Complaint: Chest Pain Present Illness Allergies: Coded Allergies: GENTAMICIN (Unverified Allergy, Unknown, 07/04/17) IBUPROFEN (Unverified Allergy, Unknown, 05/30/14) NITROGLYCERIN (Unverified Allergy, Unknown, 07/04/17) Medication History Scheduled Carvedilol (Coreg), 25 MG ORAL EVERY 12 HOURS, (Reported) Carvedilol (Coreg), 6.25 MG ORAL EVERY 12 HOURS, (Reported) Citalopram Hydrobromide (Celexa), 10 MG ORAL DAILY, (Reported) Clonazepam* (Klonopin*), 1 MG ORAL BID, (Reported) Dabigatran Etexilate Mesylate (Pradaxa), 150 MG ORAL DAILY, (Reported) Dabigatran Etexilate Mesylate* (Pradaxa*), 150 MG ORAL DAILY, (Reported) Digoxin* (Digoxin*), 62.5 MCG ORAL DAILY, (Reported) Magnesium Hydroxide* (Milk Of Magnesia*), 30 ML ORAL Q6HR, (Reported) Meloxicam* (Meloxicam*), 15 MG PO DAILY, (Reported) Rivaroxaban (Xarelto), 20 MG ORAL DAILY, (Reported) Temazepam (Temazepam*), 30 MG ORAL BEDTIME, (Reported) Temazepam (Temazepam*), 15 MG ORAL BEDTIME, (Reported) Scheduled PRN Acetaminophen* (Acetaminophen 325MG Tablet*), 650 MG ORAL Q4H PRN for Mild Pain (Pain Scale 1-3), (Reported) Hydrocodone Bit/Acetaminophen 5-325* ([place] 5-325*), 1 TAB ORAL Q8HR PRN for For Pain, (Reported) Lorazepam* (Lorazepam*), 1 MG ORAL EVERY 6 HOURS PRN for For Anxiety, (Reported) OXYCODONE HCl* (Roxicodone*), 15 MG ORAL Q8HR PRN for Severe Pain (Pain Scale 7- 10), (Reported) Miscellaneous Medications Mag Hydrox/Al Hydrox/Simeth (Alum-Mag Hydroxide-Simeth Liq), 200 ML PO, ( Reported) Patient History Healthcare decision maker Resuscitation status Full Code Advanced Directive on File Physical Exam Last 24 Hour Vital Signs Date Time Temp Pulse Resp B/P (MAP) Pulse Ox O2 Delivery O2 Flow Rate FiO2 10/27/17 09:06 96 143/97 07/06/17 09:05 96 07/06/17 08:18 98.6 96 20 143/97 96 Room Air 07/06/17 04:16 97.0 106 20 114/78 96 Room Air 07/06/17 04:00 106 07/06/17 00:22 97.2 92 22 129/98 96 Room Air 07/06/17 00:00 92 07/05/17 21:12 88 146/101 07/05/17 20:11 97.2 88 22 146/101 95 Room Air 07/05/17 20:00 80 07/05/17 16:00 75 07/05/17 15:52 98.8 85 20 145/76 93 Room Air 07/05/17 12:00 77 07/05/17 11:26 96.6 76 20 146/92 95 Room Air Laboratory Tests Test 07/06/17 04:45 White Blood Count 7.3 K/UL (4.8-10.8) Red Blood Count 4.23 M/UL (4.70-6.10) L Hemoglobin 14.9 G/DL (14.2-18.0) Hematocrit 42.5 % (42.0-52.0) Mean Corpuscular Volume 100 FL (80-99) H Mean Corpuscular Hemoglobin 35.2 PG (27.0-31.0) H Mean Corpuscular Hemoglobin Concent 35.1 G/DL (32.0-36.0) Red Cell Distribution Width 11.0 % (11.6-14.8) L Platelet Count 160 K/UL (150-450) Mean Platelet Volume 8.4 FL (6.5-10.1) Neutrophils (%) (Auto) 67.5 % (45.0-75.0) Lymphocytes (%) (Auto) 15.9 % (20.0-45.0) L Monocytes (%) (Auto) 12.1 % (1.0-10.0) H Eosinophils (%) (Auto) 3.7 % (0.0-3.0) H Basophils (%) (Auto) 1.0 % (0.0-2.0) Prothrombin Time 9.9 SEC (9.30-11.50) Prothromb Time International Ratio 0.9 (0.9-1.1) Activated Partial Thromboplast Time 27 SEC (23-33) Troponin I 0.003 ng/mL (0.000-0.056) C-Reactive Protein, Quantitative < 0.0 mg/dL (0.00-0.90) L Triglycerides Level 51 MG/DL (0-200) Cholesterol Level 116 MG/DL (< 200) LDL Cholesterol 51 mg/dL (<100) HDL Cholesterol 61 MG/DL (40-60) H Cholesterol/HDL Ratio 1.9 (3.3-4.4) L Thyroid Stimulating Hormone (TSH) 1.277 uiU/mL (0.360-3.740) Height (Feet): 5 Height (Inches): 10.00 Weight (Pounds): 215 Medications Current Medications Medications (Trade) Dose Ordered Sig/Wm Route PRN Reason Start Time Stop Time Status Last Admin Dose Admin Acetaminophen (Tylenol) 650 mg Q4H PRN ORAL FEVER 07/05/17 01:30 08/04/17 01:29 Acetaminophen/ Hydrocodone Bitart ([place] 10/325) 1 ea Q4H PRN ORAL severe pain 07/06/17 10:15 07/13/17 10:14 UNV Baclofen (Lioresal) 10 mg THREE TIMES A DAY PRN ORAL muscle spasm 07/06/17 10:15 08/05/17 10:14 UNV Carvedilol (Coreg) 6.25 mg EVERY 12 HOURS ORAL 07/05/17 21:00 08/04/17 20:59 07/06/17 09:06 Citalopram Hydrobromide (celeXA) 10 mg DAILY ORAL 07/05/17 09:00 08/04/17 08:59 07/06/17 09:05 Clonazepam (KlonoPIN) 1 mg BID ORAL 07/06/17 09:00 07/13/17 08:59 07/06/17 09:06 Digoxin (Lanoxin) 0.0625 mg DAILY ORAL 07/05/17 09:00 08/04/17 08:59 07/06/17 09:05 Diltiazem HCl (Cardizem) 10 mg Q1H PRN IV heart rate more than 120, 07/05/17 01:30 08/04/17 01:29 Enalaprilat (Vasotec) 2.5 mg Q6H PRN IV sbp more than 160 07/05/17 01:30 08/04/17 01:29 Lorazepam (Ativan 2mg/ml 1ml) 1 mg Q4H PRN IV For Anxiety 07/05/17 01:45 07/12/17 01:44 07/06/17 06:14 Methocarbamol (Robaxin) 500 mg Q8H PRN ORAL muscle spasm 07/06/17 10:30 08/05/17 10:29 UNV Ondansetron HCl (Zofran) 4 mg Q6H PRN IVP Nausea & Vomiting 07/05/17 01:30 08/04/17 01:29 Polyethylene Glycol (Miralax) 17 gm DAILYPRN PRN ORAL Constipation 07/05/17 01:30 08/04/17 01:29 Pregabalin (Lyrica) 50 mg THREE TIMES A DAY ORAL 07/06/17 10:15 08/05/17 10:14 UNV Rivaroxaban (Xarelto) 20 mg DAILY ORAL 07/06/17 09:00 08/05/17 08:59 07/06/17 09:06 Temazepam (Restoril) 15 mg HSPRN PRN ORAL Insomnia 07/05/17 01:30 07/12/17 01:29 07/05/17 21:12 Assessment/Plan Assessment/Plan (1) Lumbar DDD (2) Lumbar Spondylosis (3) Lumbar Radiculopathy seen dictated ILIANA DEWEY Jul 06, 2017 10:26
[2017-07-06] MEDS ORDERED: Norco 10mg/325mg tab ORAL PRN (11:00)
[2017-07-06] MEDS ORDERED: Methocarbamol 500mg tab ORAL PRN (11:00)
[2017-07-06] MEDS ORDERED: Lyrica 50mg cap ORAL SCH (13:00)
--- NOTE | 2017-07-06 14:15 | Consultation ---
History of Present Illness General Date patient seen: Jul 05, 2017 Chief Complaint: Chest Pain Present Illness HPI 52 yo male who has a history of anxiety d/o and personality d/o as well as cardiomyopathy, atrial fibrillation that is permanent. He was recently at [facility] was transferred to [facility] and few hours later he stated that he has chest pain and was transferred to [facility]. During the eval the pt was agitated and was hovering around the nursing station. the pt was illogical. medication seeking behavior. Allergies: Coded Allergies: GENTAMICIN (Unverified Allergy, Unknown, 07/04/17) IBUPROFEN (Unverified Allergy, Unknown, 05/30/14) NITROGLYCERIN (Unverified Allergy, Unknown, 07/04/17) Medication History Scheduled Carvedilol (Coreg), 25 MG ORAL EVERY 12 HOURS, (Reported) Carvedilol (Coreg), 6.25 MG ORAL EVERY 12 HOURS, (Reported) Citalopram Hydrobromide (Celexa), 10 MG ORAL DAILY, (Reported) Clonazepam* (Klonopin*), 1 MG ORAL BID, (Reported) Dabigatran Etexilate Mesylate (Pradaxa), 150 MG ORAL DAILY, (Reported) Dabigatran Etexilate Mesylate* (Pradaxa*), 150 MG ORAL DAILY, (Reported) Digoxin* (Digoxin*), 62.5 MCG ORAL DAILY, (Reported) Magnesium Hydroxide* (Milk Of Magnesia*), 30 ML ORAL Q6HR, (Reported) Meloxicam* (Meloxicam*), 15 MG PO DAILY, (Reported) Rivaroxaban (Xarelto), 20 MG ORAL DAILY, (Reported) Temazepam (Temazepam*), 30 MG ORAL BEDTIME, (Reported) Temazepam (Temazepam*), 15 MG ORAL BEDTIME, (Reported) Scheduled PRN Acetaminophen* (Acetaminophen 325MG Tablet*), 650 MG ORAL Q4H PRN for Mild Pain (Pain Scale 1-3), (Reported) Hydrocodone Bit/Acetaminophen 5-325* ([place] 5-325*), 1 TAB ORAL Q8HR PRN for For Pain, (Reported) Lorazepam* (Lorazepam*), 1 MG ORAL EVERY 6 HOURS PRN for For Anxiety, (Reported) OXYCODONE HCl* (Roxicodone*), 15 MG ORAL Q8HR PRN for Severe Pain (Pain Scale 7- 10), (Reported) Miscellaneous Medications Mag Hydrox/Al Hydrox/Simeth (Alum-Mag Hydroxide-Simeth Liq), 200 ML PO, ( Reported) Patient History History Provided By: Patient, Medical Record, PMD Healthcare decision maker Resuscitation status Full Code Advanced Directive on File Past Medical/Surgical History Past Medical/Surgical History: (1) Drug-seeking behavior (2) Atrial fibrillation (3) Anxiety (4) ACS (acute coronary syndrome) (5) Chronic back pain Review of Systems Psychiatric: Reports: prior hx, anxiety, depressed feelings, emotional problems Physical Exam General Appearance: no apparent distress, alert Neurologic: alert, oriented x 3, responsive, depressed affect Last 24 Hour Vital Signs Date Time Temp Pulse Resp B/P (MAP) Pulse Ox O2 Delivery O2 Flow Rate FiO2 07/06/17 09:06 96 143/97 07/06/17 09:05 96 07/06/17 08:18 98.6 96 20 143/97 96 Room Air 07/06/17 04:16 97.0 106 20 114/78 96 Room Air 07/06/17 04:00 106 07/06/17 00:22 97.2 92 22 129/98 96 Room Air 07/06/17 00:00 92 07/05/17 21:12 88 146/101 07/05/17 20:11 97.2 88 22 146/101 95 Room Air 07/05/17 20:00 80 07/05/17 16:00 75 07/05/17 15:52 98.8 85 20 145/76 93 Room Air Intake and Output 07/06/17 07/07/17 19:00 07:00 Intake Total 250 ml Balance 250 ml Intake Oral 250 ml # Voids 1 Laboratory Tests Test 07/06/17 04:45 White Blood Count 7.3 K/UL (4.8-10.8) Red Blood Count 4.23 M/UL (4.70-6.10) L Hemoglobin 14.9 G/DL (14.2-18.0) Hematocrit 42.5 % (42.0-52.0) Mean Corpuscular Volume 100 FL (80-99) H Mean Corpuscular Hemoglobin 35.2 PG (27.0-31.0) H Mean Corpuscular Hemoglobin Concent 35.1 G/DL (32.0-36.0) Red Cell Distribution Width 11.0 % (11.6-14.8) L Platelet Count 160 K/UL (150-450) Mean Platelet Volume 8.4 FL (6.5-10.1) Neutrophils (%) (Auto) 67.5 % (45.0-75.0) Lymphocytes (%) (Auto) 15.9 % (20.0-45.0) L Monocytes (%) (Auto) 12.1 % (1.0-10.0) H Eosinophils (%) (Auto) 3.7 % (0.0-3.0) H Basophils (%) (Auto) 1.0 % (0.0-2.0) Prothrombin Time 9.9 SEC (9.30-11.50) Prothromb Time International Ratio 0.9 (0.9-1.1) Activated Partial Thromboplast Time 27 SEC (23-33) Troponin I 0.003 ng/mL (0.000-0.056) C-Reactive Protein, Quantitative < 0.0 mg/dL (0.00-0.90) L Triglycerides Level 51 MG/DL (0-200) Cholesterol Level 116 MG/DL (< 200) LDL Cholesterol 51 mg/dL (<100) HDL Cholesterol 61 MG/DL (40-60) H Cholesterol/HDL Ratio 1.9 (3.3-4.4) L Thyroid Stimulating Hormone (TSH) 1.277 uiU/mL (0.360-3.740) Height (Feet): 5 Height (Inches): 10.00 Weight (Pounds): 215 Assessment/Plan Status: stable Assessment/Plan MDD, anxiety d/o cluster B personality -start klonopin -start Gabriella Meier M.D. Jul 06, 2017 14:15
--- NOTE | 2017-07-06 14:18 | General Progress Note ---
Assessment/Plan Status: stable, progressing Status Narrative mdd anxiety personality d/o -dc celexa per the pt request -the pt left AMA -the pt was not hold-able Subjective Date patient seen: Jul 06, 2017 Neurologic/Psychiatric: Reports: anxiety, depressed, emotional problems Allergies: Coded Allergies: GENTAMICIN (Unverified Allergy, Unknown, 07/04/17) IBUPROFEN (Unverified Allergy, Unknown, 05/30/14) NITROGLYCERIN (Unverified Allergy, Unknown, 07/04/17) Subjective the pt was hovering around the nursing station and was abusive towards the staff / poor insight. the pt was not direct-able and security was called. the pt is irritable and paranoid. later he was upset due to medication as he was not "getting my pain meds" Objective Last 24 Hour Vital Signs Date Time Temp Pulse Resp B/P (MAP) Pulse Ox O2 Delivery O2 Flow Rate FiO2 07/06/17 09:06 96 143/97 07/06/17 09:05 96 07/06/17 08:18 98.6 96 20 143/97 96 Room Air 07/06/17 04:16 97.0 106 20 114/78 96 Room Air 07/06/17 04:00 106 07/06/17 00:22 97.2 92 22 129/98 96 Room Air 07/06/17 00:00 92 07/05/17 21:12 88 146/101 07/05/17 20:11 97.2 88 22 146/101 95 Room Air 07/05/17 20:00 80 07/05/17 16:00 75 07/05/17 15:52 98.8 85 20 145/76 93 Room Air Intake and Output 07/06/17 07/07/17 19:00 07:00 Intake Total 250 ml Balance 250 ml Intake Oral 250 ml # Voids 1 Laboratory Tests 07/06/17 04:45: White Blood Count 7.3, Red Blood Count 4.23L, Hemoglobin 14.9, Hematocrit 42.5, Mean Corpuscular Volume 100H, Mean Corpuscular Hemoglobin 35.2H, Mean Corpuscular Hemoglobin Concent 35.1, Red Cell Distribution Width 11.0L, Platelet Count 160, Mean Platelet Volume 8.4, Neutrophils (%) (Auto) 67.5, Lymphocytes (%) (Auto) 15.9L, Monocytes (%) (Auto) 12.1H, Eosinophils (%) (Auto ) 3.7H, Basophils (%) (Auto) 1.0, Prothrombin Time 9.9, Prothromb Time International Ratio 0.9, Activated Partial Thromboplast Time 27, Troponin I 0.003, C-Reactive Protein, Quantitative < 0.0L, Triglycerides Level 51, Cholesterol Level 116, LDL Cholesterol 51, HDL Cholesterol 61H, Cholesterol/HDL Ratio 1.9L, Thyroid Stimulating Hormone (TSH) 1.277 Height (Feet): 5 Height (Inches): 10.00 Weight (Pounds): 215 General Appearance: no apparent distress, alert, agitated, overweight Neurologic: alert, oriented x 3, responsive, depressed affect Gabriella Stokes M.D. Jul 06, 2017 14:18
--- NOTE | 2017-07-06 17:36 | Pulmonology Progress Note ---
Assessment/Plan Problems: (1) ACS (acute coronary syndrome) (2) Atrial fibrillation (3) Chronic back pain (4) AICD (automatic cardioverter/defibrillator) present (5) Anxiety Assessment/Plan Supplemental oxygen Titrate FiO2 up maintain O2 sat above 92 percent Morphine as needed for CP Nitroglycerine Aspirin prophylaxis Cardiac studies Subjective ROS Limited/Unobtainable: No Cardiovascular: Reports: chest pain Allergies: Coded Allergies: GENTAMICIN (Unverified Allergy, Unknown, 07/04/17) IBUPROFEN (Unverified Allergy, Unknown, 05/30/14) NITROGLYCERIN (Unverified Allergy, Unknown, 07/04/17) Objective Last 24 Hour Vital Signs Date Time Temp Pulse Resp B/P (MAP) Pulse Ox O2 Delivery O2 Flow Rate FiO2 07/06/17 09:06 96 143/97 07/06/17 09:05 96 07/06/17 08:18 98.6 96 20 143/97 96 Room Air 07/06/17 04:16 97.0 106 20 114/78 96 Room Air 07/06/17 04:00 106 07/06/17 00:22 97.2 92 22 129/98 96 Room Air 07/06/17 00:00 92 07/05/17 21:12 88 146/101 07/05/17 20:11 97.2 88 22 146/101 95 Room Air 07/05/17 20:00 80 Intake and Output 07/06/17 07/07/17 19:00 07:00 Intake Total 250 ml Balance 250 ml Intake Oral 250 ml # Voids 1 General Appearance: no acute distress HEENT: normocephalic, atraumatic, anicteric, PERRL Respiratory/Chest: chest wall non-tender, decreased breath sounds, accessory muscle use Cardiovascular: normal peripheral pulses, normal rate, regular rhythm, no JVD Abdomen: normal bowel sounds, soft, non tender, no organomegaly, non distended Genitourinary: normal external genitalia Extremities: no cyanosis Skin: no rash, no lesions Neurologic/Psychiatric: pharmaceutical botanist II-XII grossly normal, no motor/sensory deficits Laboratory Tests 07/06/17 04:45: White Blood Count 7.3, Red Blood Count 4.23L, Hemoglobin 14.9, Hematocrit 42.5, Mean Corpuscular Volume 100H, Mean Corpuscular Hemoglobin 35.2H, Mean Corpuscular Hemoglobin Concent 35.1, Red Cell Distribution Width 11.0L, Platelet Count 160, Mean Platelet Volume 8.4, Neutrophils (%) (Auto) 67.5, Lymphocytes (%) (Auto) 15.9L, Monocytes (%) (Auto) 12.1H, Eosinophils (%) (Auto ) 3.7H, Basophils (%) (Auto) 1.0, Prothrombin Time 9.9, Prothromb Time International Ratio 0.9, Activated Partial Thromboplast Time 27, Troponin I 0.003, C-Reactive Protein, Quantitative < 0.0L, Triglycerides Level 51, Cholesterol Level 116, LDL Cholesterol 51, HDL Cholesterol 61H, Cholesterol/HDL Ratio 1.9L, Thyroid Stimulating Hormone (TSH) 1.277 MARCIN RIVERA Jul 06, 2017 17:36
[2017-07-06] MEDS ORDERED: XARELTO20 MG ORAL (19:52)
[2017-07-06] MEDS ORDERED: COREG6.25 MG ORAL (19:52)
[2017-07-06] MEDS ORDERED: DIGOXIN125 MCG ORAL (19:52)
--- NOTE | 2017-07-06 20:00 | Consultation ---
DATE OF CONSULTATION: 07/06/2017 PAIN MANAGEMENT CONSULTATION CONSULTING PHYSICIAN: Gustavo Bedolla M.D. REFERRING PHYSICIAN: Keith Soares M.D. PHYSICIAN NIBBLER OPERATOR: David Villarreal CHIEF COMPLAINT: Low back pain. HISTORY OF PRESENT ILLNESS: The patient is a 52-year-old male, who is being seen on the telemetry floor of [facility] for comprehensive pain management consultation. The patient is a known patient from hospital stays and now has been admitted under the care of Dr. Soares here in [facility] due to chest pain, ruling out ACS at this time. The patient is walking around. No signs of distress or pain, but reports that he has severe lower back pain. He is receiving TPIs and epidural injections from Dr. Efrain Robledo as an outpatient and reports that the pain has been getting severe over the past few months. He is describing the pain as sharp, stabbing, shooting, aching, and throbbing pain in his lower extremities. It is radiating into his lower extremities, worse with walking and standing, and reduced with medications. The patient reports that he has been on oxycodone and morphine extended release, and at this time, is on morphine 6 mg solution every 4 hours as needed for severe pain, morphine 2 mg IV every 4 hours as needed for moderate pain, and oxycodone 15 mg tablet every 8 hours as needed for pain as well. At this time, I discussed with the patient about discontinuing the morphine and oxycodone and starting him on [place] 10/325 one tablet every 4 hours as needed for severe pain, Lyrica 50 mg 3 times a day, and Robaxin 500 mg every 8 hours as needed for muscle spasms, and ordering a CT scan of lumbar spine without contrast to further assess his lower back pain. The patient understands and agrees. PAST MEDICAL HISTORY: Atrial fibrillation, anxiety, and low back pain. PAST SURGICAL HISTORY: AICD placement. MEDICATIONS: Coreg, Celexa, Klonopin, Pradaxa, digoxin, meloxicam, Xarelto, temazepam, Tylenol, [place], oxycodone, and lorazepam. ALLERGIES: Gentamicin, ibuprofen, and nitroglycerin. SOCIAL HISTORY: Denies smoking tobacco, drinking alcohol, or IV drug abuse at this time. REVIEW OF SYSTEMS: Denies rash, fever, chills, sweating, dizziness, drowsiness, blurred vision, sore throat, or change in weight. No shortness of breath or chest pain. No nausea, vomiting, diarrhea, or blood in the stool or urine. No bowel or bladder incontinence. No dysuria. He is complaining of low back pain. PHYSICAL EXAMINATION: GENERAL: Alert, awake, and oriented. VITAL SIGNS: Blood pressure 143/97, heart rate is 96, oxygen saturation is 96%, respiratory rate is 20, and temperature is 98.6 degrees Fahrenheit. HEENT: PERRLA. NECK: Range of motion is decreased due to the patient's pain and condition. Tenderness to paracervical muscles. No adenopathy. LUNGS: Decreased breath sounds bilaterally. HEART: Regular. ABDOMEN: Benign. BACK: Range of motion is decreased in flexion and extension with tenderness to paraspinal muscles, trapezius, and rhomboid muscles. EXTREMITIES: Upper extremity range of motion is full in all directions. No cyanosis. No clubbing. No edema. Sensory is intact. Reflexes are not obtainable. No adenopathy. Lower extremity range of motion is decreased due to the patient's pain and condition. Sensory is intact. Reflexes are not obtainable. No adenopathy. ASSESSMENT AND PLAN: This is a 52-year-old male with lumbar degenerative disk disease, lumbar spondylosis, and lumbar radiculopathy. We will again discontinue the morphine and the oxycodone. We will start the patient on [place] 10/325 one tablet every 4 hours as needed for severe pain. We will start the patient on Lyrica 50 mg tablet three times a day and Robaxin 500 mg tablet every 8 hours as needed for muscle spasms. Order a CT scan of lumbar spine without contrast to further assess the lower back pain. The patient was discussed with Dr. Bedolla and Dr. Bedolla concurred. We will follow the patient. Thank you very much for the courtesy of this consultation. Gustavo Bedolla M.D. OCTAVIO Villarreal DR: LIANA JOB#: [id number] CC:
--- NOTE | 2017-07-09 07:39 | Discharge Summary ---
Discharge Summary Hospital Course Date of Admission Jul 04, 2017 at 21:44 Date of Discharge Jul 06, 2017 at 11:27 Admitting Diagnosis ACUTE CORONARY SYNDROME HPI Mika Tobias is a 52 year old male who was admitted on Jul 04, 2017 at 21: 44 for Acute Coronary Syndrome Hospital Course dc summary #[id number] Discharge Discharge Disposition Patient signed AMA Discharge Diagnoses: Discharge Instructions Discharge Instructions Special Instructions I have been assigned to complete a D/C Summary on this account. I was not involved in the patient management Lucy Valera NP (Vanchtein) Jul 09, 2017 07:39
--- NOTE | 2017-07-09 19:30 | Discharge Summary 2 SIG ---
DATE OF ADMISSION: 07/04/2017 DATE OF SIGNING AGAINST MEDICAL ADVISE : 07/06/2017 REASON FOR ADMISSION: 52-year-old male, presented to emergency room with complaint of chest pain. The patient with prior medical history of hypertension, diabetes, atrial fibrillation, and AICD. The patient on anticoagulation therapy. The patient had recurrent chest pain episodes with admission to the hospital for further workup and signing against medical advice later. Last cardiac catheterization was 4 years ago, and the patient was told that he had clean coronary arteries. In the emergency department, the patient reported chest pain, localized in substernal area, no radiation, sharp and gradual in onset. The patient also complained of shortness of breath, diaphoresis, but no nausea and no vomiting. He denied fevers, chills, cough, pain, and trauma. The patient was given aspirin 325 mg by the paramedics. The patient allergic to nitroglycerin and was unable to take it. First troponin was negative. Pro BNP only 340. The patient was slightly tachycardic - 115. Pulse oximetry 92% on the room air. EKG showed atrial fibrillation. The patient was admitted for further management. HOSPITAL COURSE: The patient was admitted to telemetry floor. Cardiology consult was requested. In the emergency department, the patient received heparin bolus and one liter of the fluid. Echocardiogram revealed global left ventricular hypokinesis, left ventricular ejection fraction of 40%, and mild left ventricular hypertrophy. Chest x-ray revealed no acute process, but showed biventricular AICD and cardiomegaly. Troponin x3 were negative. Lipid panel was stable. Engineering Analyst seen and evaluated the patient. Per bone tender, the patient had a history of recurrent chest pain episodes, likely related to his anxiety. The patient had a prior cardiac catheterization, and was told that he had pristine vessels, . Engineering Analyst doubted that the patient had coronary syndrome. Most likely his symptoms were related to anxiety. However, since the patient described episodes of chest pain, bone tender ordered interrogation of AICD to address if there were any discharges. Meantime, the patient was continued on the same medication regimen, including anticoagulation for stroke prevention since the patient had a permanent atrial fibrillation. The patient was on Eliquis. Coreg and digoxin were continued for medical management of cardiomyopathy. Engineering Analyst also recommended low dose of SLICK inhibitor. mobile security specialist seen and evaluated the patient. The patient with chronic back pain secondary to lumbar spondylosis, lumbar radiculopathy, and lumbar degenerative disk disease. Pain management was optimized by pain specialist. The patient was off morphine and off oxycodone, and started on [place] as needed for severe pain. Continue Lyrica and Robaxin. CT of L-spine was ordered to further evaluate the lower back pain. Psychiatrist seen and evaluated the patient, diagnosed the patient with major depressive disorder, anxiety and cluster B personality disorder. Psychiatric medication regimen was optimized. The patient was placed on Klonopin and Celexa. The patient declined Celexa. Celexa was discontinued. The patient decided to sign against medical advice since he became more agitated after morphine was discontinued. The risk and consequences of signing against medical advice were discussed with the patient. The patient insisted and signed the form. FINAL DIAGNOSES: 1. Likely nonischemic cardiomyopathy, 2. Recurrent chest pain , likely related to anxiety. 2. Permanent atrial fibrillation. 3. Automatic implanted cardioverter defibrillator. 4. Chronic back pain. 5. Major depression disorder. 6. Anxiety. 7. Cluster B personality disorder. 8. Possible medication-seeking behavior. Keith Soares M.D. I have been assigned to dictate discharge summary on this account and I was not involved in the patient's management. [facility] N.PRita DR: Drew JOB#: [id number] CC: CAROLYN
== END 2017-07-06 11:27 | disposition left against medical advice (07) | DRG 880 ==
LOC: EDBD 19:23 → EMR 20:00 → 2E 21:44 → EDBEDREQ 23:38 → 2E 07-05 00:51
DX: F41.9 Anxiety disorder, unspecified (principal); I42.8 Other cardiomyopathies; I48.2 Chronic atrial fibrillation; I10 Essential (primary) hypertension; F32.9 Major depressive disorder, single episode, unspecified; M54.9 Dorsalgia, unspecified; R07.89 Other chest pain; G89.29 Other chronic pain; E11.9 Type 2 diabetes mellitus without complications; M47.9 Spondylosis, unspecified; M51.16 Intervertebral disc disorders with radiculopathy, lumbar region; Z76.5 Malingerer [conscious simulation]; Z53.21 Procedure and treatment not carried out due to patient leaving prior to being seen by health care provider; Z79.01 Long term (current) use of anticoagulants; Z95.810 Presence of automatic (implantable) cardiac defibrillator; F60.89 Other specific personality disorders; Z23 Encounter for immunization
CPT/HCPCS: 36415; 71010; 80053; 80061; 82550; 82553; 83880; 84443; 84484; 85025; 85610; 85730; 86140; 87081; 93005; 93306; 94664

== ENCOUNTER 2017-07-06 19:25 | Emergency (ER) | payer MEDICARE, OTHER ==
[~2017-07-06] VITALS: Ht 177.8 cm; Wt 98.4 kg
[~2017-07-06 19:25] MED LIST changes: +ACETAMINOPHEN325 M1 ORAL; +ALUM-MAG HYDRO360 ML PO; +CELEXA10 MG ORAL; +COREG6.25 MG ORAL; +DIGOXIN125 MCG ORAL; +KLONOPIN1 MG ORAL; +LORAZEPAM1 MG ORAL; +MELOXICAM15 MG PO; +MILK OF MA400 MG/51 ORAL; +NORCO 5-325 TA1 EACH ORAL; +PRADAXA150 MG ORAL; +ROXICODONE15 MG ORAL; +XARELTO20 MG ORAL
[2017-07-06 19:45] VITALS: BP 139/98
--- NOTE | 2017-07-06 19:46 | Emergency Room Report ---
History of Present Illness General Chief Complaint: Chest Pain Source: Patient, Medical Record Present Illness HPI [id number] came back to ED because "they told me to come back." he is also c/o chest pain, 6.10, substernatl, non-radiating. Patient signed out AMA earlier today after disagreement with psychiatrist over dose of kloponin. Then immediately called [facility] thereafter stating he had no place to go and he reports he was told to come back to ED and be admitted to the hospital to see the SW on Sunday. I spoke to Dr Merida and she reiterated that patient was hovering around nursing station, asking for klonopin and ativan to be given at same time - he became upset, signed out AMA. Was not given Rx for any of his medications. He had been on Celexa but patient stopped this medication because it was making him drowsy. At no point did patient express SI, HI, AVH. He was cleared from a Psychiatry point. Per Dr Merida, patient DID meet with for one hour already. He had been admitted to chest pain. He was seen by Dr Galindo in Cards Consult. Dr Galindo "doubts" he had coronary syndrome. [place] symptoms most likely related to anxiety. He had troponin WNL X3 during admission. He is on various CAD meds including Xarelto that were not given in Rx when he signed out AMA. Allergies: Coded Allergies: GENTAMICIN (Unverified Allergy, Unknown, 07/04/17) IBUPROFEN (Unverified Allergy, Unknown, 05/30/14) NITROGLYCERIN (Unverified Allergy, Unknown, 07/04/17) Patient History Past Medical History: CAD, psych hx Past Surgical History: pacemaker Pertinent Family History: none Social History: Denies: smoking, alcohol use, drug use Reviewed Nursing Documentation: PMH: Agreed, PSxH: Agreed Nursing Documentation-PMH Hx Cardiac Problems: Yes - A-FIB, cardiomyopathy, CHF Hx Pacemaker: Yes Review of Systems All Other Systems: negative except mentioned in HPI Physical Exam Vital Signs Date Time Temp Pulse Resp B/P (MAP) Pulse Ox O2 Delivery O2 Flow Rate FiO2 07/06/17 19:32 97 18 139/98 98 Room Air Sp02 EP Interpretation: reviewed, normal General Appearance: normal inspection, well appearing, no apparent distress, alert, GCS 15, non-toxic Head: normocephalic, atraumatic Eyes: bilateral eye PERRL, bilateral eye EOMI ENT: normal ENT inspection, hearing grossly normal, normal voice Neck: normal inspection, full range of motion, supple, no bony tend Respiratory: normal inspection, lungs clear, normal breath sounds, no respiratory distress, no retraction, no wheezing Cardiovascular #1: regular rate, rhythm, no edema Gastrointestinal: normal inspection, normal bowel sounds, non tender, soft, no guarding, no hernia Genitourinary: no CVA tenderness Musculoskeletal: normal inspection, back normal, normal range of motion, Rose Mary' s Sign negative Neurologic: normal inspection, alert, oriented x3, responsive, measurement supervisor III-XII nml as tested, speech normal Psychiatric: normal inspection, judgement/insight normal, mood/affect normal Skin: normal inspection, normal color, no rash Medical Decision Making Diagnostic Impression: Primary Impression: Chest pain Qualified Codes: R07.9 - Chest pain, unspecified Additional Impressions: Drug-seeking behavior Malingering ER Course Patient with chest pain, VSS. Afebrile. Not hypoxic. I agree with Card Cx - I doubt ACS given Ventricular paced rhythm, again without ischemic changes today, and recent troponin X3. Patient is clearly malingering for nursing home given homelessness and also had exhibited drug-seeking behavior, harassment of staff, and disruption of inpatient hospital operations during recent hospital admission I discussed all this with patient I reassured him that his chest pain is unlikely to be cardiac. I refilled his cardiac medications I d/w him that he was already seen by SW and does not need to be admitted to see SW in 3 days time, on Sunday. Patient will followup with outpatient psych and PMD as needed DC EKG Diagnostic Results Rate: other - Ventricular paced ST Segments: no acute changes ASA given to the pt in ED: No Rhythm Strip Diag. Results EP Interpretation: yes Rate: 95 Rhythm: no PVC's, no ectopy Last Vital Signs Date Time Temp Pulse Resp B/P (MAP) Pulse Ox O2 Delivery O2 Flow Rate FiO2 07/06/17 19:32 97 18 139/98 98 Room Air Status: improved Disposition: HOME, SELF-CARE Scripts Rivaroxaban (XARELTO) 20 Mg Tablet 20 MG ORAL DAILY for 30 Days, #30 MG 0 Refills Prov: LUCINA ALMONTE M.D. 07/06/17 Digoxin* (DIGOXIN*) 125 Mcg Tablet 125 MCG ORAL DAILY for 30 Days, #30 TAB Prov: LUCINA ALMONTE M.D. 07/06/17 Carvedilol (Coreg) 6.25 Mg Tablet 6.25 MG ORAL EVERY 12 HOURS for 30 Days, #60 TAB Prov: LUCINA ALMONTE M.D. 07/06/17 LUCINA ALMONTE M.D. Jul 06, 2017 19:46
[2017-07-06] MEDS ORDERED: DIGOXIN125 MCG ORAL (19:52)
[2017-07-06] MEDS ORDERED: COREG6.25 MG ORAL (19:52)
[2017-07-06] MEDS ORDERED: XARELTO20 MG ORAL (19:52)
== END 2017-07-06 20:00 | disposition home or self-care (01) ==
LOC: EMR 19:55
DX: R10.9 Unspecified abdominal pain (principal); Z76.5 Malingerer [conscious simulation]; I48.91 Unspecified atrial fibrillation; I42.9 Cardiomyopathy, unspecified; I50.9 Heart failure, unspecified; Z95.0 Presence of cardiac pacemaker
CPT/HCPCS: 93005; 99284

== ENCOUNTER 2019-12-12 11:22 | Inpatient (IN) | payer MEDICARE, OTHER ==
[~2019-12-12] VITALS: Ht 170.2 cm; Wt 68.0 kg
--- NOTE | 2019-12-12 12:00 | NUR ---
ED Nurse Note: Pt came from home w/ c/o chest pain that started an hour ago 10/10 sharp constant pain. Pain radiated to L shoulder. Pt is alert and orientedx4, ambulatory. Pt is set up on monitor and MD has seen pt. He has history of OR. EKG taken.
[2019-12-12 12:07] LABS: ANION GAP 9 mmol/L (5-15); BLOOD UREA NITROGEN 17 mg/dL (7-18); CALCIUM 9.2 MG/DL (8.5-10.1); CARBON DIOXIDE 25 MMOL/L (21-32); CHLORIDE 104 MMOL/L (98-107); CREATININE 0.6 MG/DL (0.55-1.30); POTASSIUM 4.7 MMOL/L (3.5-5.1); SODIUM 138 MMOL/L (136-145)
[2019-12-12] MEDS ORDERED: Morphine Sulfate 2mg/ml Inj(IV/IM USE ONLY) IVP ONE ×2 (12:15→16:30)
[2019-12-12 12:16] VITALS: BP 129/71
[2019-12-12 12:17] LABS: ALANINE AMINOTRANSFERASE 35 U/L (12-78); ALBUMIN 3.7 G/DL (3.4-5.0); ALBUMIN/GLOBULIN RATIO 0.9 (1.0-2.7); ALKALINE PHOSPHATASE 63 U/L (46-116); ASPARTATE AMINO TRANSFERASE 26 U/L (15-37); BILIRUBIN,TOTAL 0.3 MG/DL (0.2-1.0)
[2019-12-12 12:26] LABS: BASOPHILS % (AUTO) 1.1 % (0.0-2.0); EOSINOPHILS % (AUTO) 1.7 % (0.0-3.0); HEMATOCRIT 45.5 % (42.0-52.0); HEMOGLOBIN 15.9 G/DL (14.2-18.0); LYMPHOCYTES % (AUTO) 22.3 % (20.0-45.0); MEAN CORPUSCULAR VOLUME 96 FL (80-99); MONOCYTES % (AUTO) 9.6 % (1.0-10.0); NEUTROPHILS % (AUTO) 65.3 % (45.0-75.0); PLATELET COUNT 168 K/UL (150-450); RED BLOOD COUNT 4.73 M/UL (4.70-6.10); RED CELL DISTRIBUTION WIDTH 10.6 % (11.6-14.8)
--- NOTE | 2019-12-12 12:43 | Emergency Room Report ---
History of Present Illness General Chief Complaint: Chest Pain Source: Patient Present Illness HPI Disclaimer: Please note that this report is being documented using DRAGON technology. This can lead to erroneous entry secondary to incorrect interpretation by the dictating instrument. HPI: 54-year-old male history of atrial fibrillation, heart failure/ cardiomyopathy status post pacemaker, hypertension presents for evaluation of chest pain. Symptoms began approximate 10:40 AM. He was in a heated conversation that caused him great amount of stress after which she complained of 10/10 intensity left-sided chest pressure. Somewhat radiates to the left shoulder and to the left side of the neck but this is intermittent. The pain comes and goes. No associated shortness of breath. Denies fever, chills, vomiting, diarrhea. Was given aspirin by EMS but stated he was allergic to nitroglycerin. Follows with a barrel inspector tight but denies any recent stress test or cardiac catheterizations. PMH: Cardiomyopathy, A. fib PSH: Pacemaker placement Allergies: Multiple medications reviewed in chart Social Hx: Reviewed Allergies: Coded Allergies: BACLOFEN (Unverified Allergy, Unknown, 12/12/19) GABAPENTIN (Unverified Allergy, Unknown, 12/12/19) GENTAMICIN (Unverified Allergy, Unknown, 07/04/17) IBUPROFEN (Unverified Allergy, Unknown, 05/30/14) KETOROLAC (Unverified Allergy, Unknown, 12/12/19) LISINOPRIL (Unverified Allergy, Unknown, 12/12/19) NITROGLYCERIN (Unverified Allergy, Unknown, 07/04/17) COVID-19 Screening Contact w/high risk pt: No Recent Travel to affected area: No Experienced COVID-19 symptoms?: No Nursing Documentation-PMH Past Medical History: No History, Except For Hx Cardiac Problems: Yes - A-FIB, cardiomyopathy, CHF Hx Pacemaker: Yes Review of Systems All Other Systems: negative except mentioned in HPI Physical Exam Vital Signs Date Time Temp Pulse Resp B/P (MAP) Pulse Ox O2 Delivery O2 Flow Rate FiO2 12/12/19 11:14 97.9 89 16 101/76 (84) 98 Room Air 12/12/19 12:16 99 General: Awake and alert, no acute distress HEENT: NC/AT. EOMI. Neck: Supple, trachea midline Chest Wall: Pacemaker palpable left upper chest wall Cardiovascular: RRR. S1 and S2 normal. No murmur appreciated Resp: Normal work of breathing. No cough, wheezing or crackles appreciated Abdomen: Abdomen is soft, nondistended. Nontender Skin: Intact. No abrasions, laceration or rash over the exposed skin MSK: Normal tone and bulk. Moving all extremities. No obvious deformity. Neuro: Awake and alert. Mentating appropriately. Medical Decision Making Diagnostic Impression: Primary Impression: AICD (automatic cardioverter/defibrillator) present Additional Impression: Chest pain ER Course Is a 54-year-old male history of atrial fibrillation and CHF status post pacemaker presenting for evaluation of chest pain beginning approximately 1 hour prior to arrival. Differential includes was not limited to angina, ACS, stress response, bronchitis, pneumonia, costochondritis, musculoskeletal chest pain, GERD. Given extensive history we will draw cardiac markers, screening labs and obtain a chest x-ray. His EKG on arrival shows some inferior Q waves consistent with his prior MD history but no acute ST segment changes. Patient will require admission due to his multiple risk factors. Laboratory Tests Test 12/12/19 11:32 White Blood Count 9.0 K/UL (4.8-10.8) Red Blood Count 4.73 M/UL (4.70-6.10) Hemoglobin 15.9 G/DL (14.2-18.0) Hematocrit 45.5 % (42.0-52.0) Mean Corpuscular Volume 96 FL (80-99) Mean Corpuscular Hemoglobin 33.6 PG (27.0-31.0) H Mean Corpuscular Hemoglobin Concent 35.0 G/DL (32.0-36.0) Red Cell Distribution Width 10.6 % (11.6-14.8) L Platelet Count 168 K/UL (150-450) Mean Platelet Volume 6.3 FL (6.5-10.1) L Neutrophils (%) (Auto) 65.3 % (45.0-75.0) Lymphocytes (%) (Auto) 22.3 % (20.0-45.0) Monocytes (%) (Auto) 9.6 % (1.0-10.0) Eosinophils (%) (Auto) 1.7 % (0.0-3.0) Basophils (%) (Auto) 1.1 % (0.0-2.0) Sodium Level 138 MMOL/L (136-145) Potassium Level 4.7 MMOL/L (3.5-5.1) Chloride Level 104 MMOL/L (98-107) Carbon Dioxide Level 25 MMOL/L (21-32) Anion Gap 9 mmol/L (5-15) Blood Urea Nitrogen 17 mg/dL (7-18) Creatinine 0.6 MG/DL (0.55-1.30) Estimated Glomerular Filtration Rate > 60 mL/min (>60) Glucose Level 98 MG/DL (74-106) Calcium Level 9.2 MG/DL (8.5-10.1) Total Bilirubin 0.3 MG/DL (0.2-1.0) Aspartate Amino Transferase (AST) 26 U/L (15-37) Alanine Aminotransferase (ALT) 35 U/L (12-78) Alkaline Phosphatase 63 U/L (46-116) Troponin I 0.002 ng/mL (0.000-0.056) Pro-B-Type Natriuretic Peptide 274 pg/mL (0-125) H Total Protein 7.7 G/DL (6.4-8.2) Albumin 3.7 G/DL (3.4-5.0) Globulin 4.0 g/dL Albumin/Globulin Ratio 0.9 (1.0-2.7) L EKG Diagnostic Results EKG Time: 12:06 Rate: normal Rhythm: NSR ST Segments: no acute changes Other Impression Paced rhythm, inferior and lateral Q waves. No ST segment changes. Rhythm Strip Diag. Results Rhythm Strip Time: 12:06 EP Interpretation: yes Rate: 70s Rhythm: NSR, no PVC's, no ectopy Chest X-Ray Diagnostic Results Chest X-Ray Diagnostic Results : Chest X-Ray Ordered: Yes # of Views/Limited/Complete: 1 View Indication: Shortness of Breath EP Interpretation: Yes Interpretation: no consolidation, no effusion, no pneumothorax Reevaluation Time: 12:47 Last Vital Signs Date Time Temp Pulse Resp B/P (MAP) Pulse Ox O2 Delivery O2 Flow Rate FiO2 12/12/19 12:16 81 15 Room Air 99 12/12/19 12:16 97.9 129/71 99 Reevaluation Impression Labs including cardiac enzymes unremarkable. EKG shows Q waves consistent with his prior infarct. Vitals remained stable. Patient continues to complain of intermittent chest pain. He will be admitted for ACS rule out and further evaluation of his chest pain. His PMD, Dr. Rodgers, is requesting that Dr. Rivas admit the patient. Dr. Rivas has accepted. Awaiting telemetry bed Disposition: ADMITTED INPATIENT Condition: Serious Damien Caballero MD Dec 12, 2019 12:43
[2019-12-12] MEDS ORDERED: Morphine Sulfate 4mg/ml Inj (IV USE ONLY) IVP ONE (13:15)
[2019-12-12 14:00] VITALS: BP 124/78
[2019-12-12] MEDS ORDERED: dilTIAZem HCl 25mg/5ml Inj IV PRN (14:00)
[2019-12-12] MEDS ORDERED: Miralax 17gm pkt ORAL PRN (14:00)
[2019-12-12] MEDS ORDERED: Albuterol/Ipratropium 3ml neb HHN PRN (14:00)
--- NOTE | 2019-12-12 14:02 | Consultation ---
History of Present Illness General Date patient seen: Dec 12, 2019 Chief Complaint: Chest Pain Present Illness HPI 54-year-old male a Hx of of atrial fibrillation, ICD, hypertension presented to ER with CC of acute chest pain with 10/10 intensity left-sided chest pressure. Somewhat radiates to the left shoulder and to the left side of the neck but this is intermittent. The pain comes and goes. Pt was given aspirin by EMS but stated he was allergic to nitroglycerin. Pt is admitted to telemetry for further management. Allergies: Coded Allergies: BACLOFEN (Unverified Allergy, Unknown, 12/12/19) GABAPENTIN (Unverified Allergy, Unknown, 12/12/19) GENTAMICIN (Unverified Allergy, Unknown, 07/04/17) IBUPROFEN (Unverified Allergy, Unknown, 05/30/14) KETOROLAC (Unverified Allergy, Unknown, 12/12/19) LISINOPRIL (Unverified Allergy, Unknown, 12/12/19) NITROGLYCERIN (Unverified Allergy, Unknown, 07/04/17) Medication History Scheduled Carvedilol (Coreg), 25 MG ORAL EVERY 12 HOURS, (Reported) Carvedilol (Coreg), 6.25 MG ORAL EVERY 12 HOURS, (Reported) Carvedilol (Coreg), 6.25 MG ORAL EVERY 12 HOURS Citalopram Hydrobromide (Celexa), 10 MG ORAL DAILY, (Reported) Clonazepam* (Klonopin*), 1 MG ORAL BID, (Reported) Dabigatran Etexilate Mesylate (Pradaxa), 150 MG ORAL DAILY, (Reported) Dabigatran Etexilate Mesylate* (Pradaxa*), 150 MG ORAL DAILY, (Reported) Digoxin* (Digoxin*), 62.5 MCG ORAL DAILY, (Reported) Digoxin* (Digoxin*), 125 MCG ORAL DAILY Magnesium Hydroxide* (Milk Of Magnesia*), 30 ML ORAL Q6HR, (Reported) Meloxicam* (Meloxicam*), 15 MG PO DAILY, (Reported) Rivaroxaban (Xarelto), 20 MG ORAL DAILY, (Reported) Rivaroxaban (Xarelto), 20 MG ORAL DAILY Temazepam (Temazepam*), 30 MG ORAL BEDTIME, (Reported) Temazepam (Temazepam*), 15 MG ORAL BEDTIME, (Reported) Scheduled PRN Acetaminophen* (Acetaminophen 325MG Tablet*), 650 MG ORAL Q4H PRN for Mild Pain (Pain Scale 1-3), (Reported) Hydrocodone Bit/Acetaminophen 5-325* ([place] 5-325*), 1 TAB ORAL Q8HR PRN for For Pain, (Reported) Lorazepam* (Lorazepam*), 1 MG ORAL EVERY 6 HOURS PRN for For Anxiety, (Reported) OXYCODONE HCl* (Roxicodone*), 15 MG ORAL Q8HR PRN for Severe Pain (Pain Scale 7- 10), (Reported) Miscellaneous Medications Mag Hydrox/Al Hydrox/Simeth (Alum-Mag Hydroxide-Simeth Liq), 200 ML PO, ( Reported) Patient History Healthcare decision maker Resuscitation status Advanced Directive on File Past Medical/Surgical History Past Medical/Surgical History: (1) AICD (automatic cardioverter/defibrillator) present (2) Atrial fibrillation Review of Systems All Other Systems: negative except mentioned in HPI Physical Exam General Appearance: WD/WN, no apparent distress Lines, tubes and drains: peripheral HEENT: normocephalic, atraumatic Neck: non-tender, normal alignment Respiratory/Chest: chest wall non-tender, lungs clear Breasts: no masses Cardiovascular/Chest: normal peripheral pulses Abdomen: normal bowel sounds, non tender Genitourinary/Rectal: normal genital exam Extremities: normal range of motion Neurologic: patient navigator II-XII grossly normal Last 24 Hour Vital Signs Date Time Temp Pulse Resp B/P (MAP) Pulse Ox O2 Delivery O2 Flow Rate FiO2 12/12/19 12:16 81 15 Room Air 99 12/12/19 12:16 97.9 81 15 129/71 99 Room Air 12/12/19 11:14 97.9 89 16 101/76 (84) 98 Room Air Laboratory Tests Test 12/12/19 11:32 White Blood Count 9.0 K/UL (4.8-10.8) Red Blood Count 4.73 M/UL (4.70-6.10) Hemoglobin 15.9 G/DL (14.2-18.0) Hematocrit 45.5 % (42.0-52.0) Mean Corpuscular Volume 96 FL (80-99) Mean Corpuscular Hemoglobin 33.6 PG (27.0-31.0) H Mean Corpuscular Hemoglobin Concent 35.0 G/DL (32.0-36.0) Red Cell Distribution Width 10.6 % (11.6-14.8) L Platelet Count 168 K/UL (150-450) Mean Platelet Volume 6.3 FL (6.5-10.1) L Neutrophils (%) (Auto) 65.3 % (45.0-75.0) Lymphocytes (%) (Auto) 22.3 % (20.0-45.0) Monocytes (%) (Auto) 9.6 % (1.0-10.0) Eosinophils (%) (Auto) 1.7 % (0.0-3.0) Basophils (%) (Auto) 1.1 % (0.0-2.0) Sodium Level 138 MMOL/L (136-145) Potassium Level 4.7 MMOL/L (3.5-5.1) Chloride Level 104 MMOL/L (98-107) Carbon Dioxide Level 25 MMOL/L (21-32) Anion Gap 9 mmol/L (5-15) Blood Urea Nitrogen 17 mg/dL (7-18) Creatinine 0.6 MG/DL (0.55-1.30) Estimat Glomerular Filtration Rate > 60 mL/min (>60) Glucose Level 98 MG/DL (74-106) Calcium Level 9.2 MG/DL (8.5-10.1) Total Bilirubin 0.3 MG/DL (0.2-1.0) Aspartate Amino Transf (AST/SGOT) 26 U/L (15-37) Alanine Aminotransferase (ALT/SGPT) 35 U/L (12-78) Alkaline Phosphatase 63 U/L (46-116) Troponin I 0.002 ng/mL (0.000-0.056) Pro-B-Type Natriuretic Peptide 274 pg/mL (0-125) H Total Protein 7.7 G/DL (6.4-8.2) Albumin 3.7 G/DL (3.4-5.0) Globulin 4.0 g/dL Albumin/Globulin Ratio 0.9 (1.0-2.7) L Height (Feet): 5 Height (Inches): 7.00 Weight (Pounds): 150 Medications Current Medications Medications (Trade) Dose Ordered Sig/Wm Route PRN Reason Start Time Stop Time Status Last Admin Dose Admin Carvedilol (Coreg) 25 mg EVERY 12 HOURS ORAL 12/12/19 21:00 01/11/20 20:59 UNV Citalopram Hydrobromide (CeleXA) 10 mg DAILY ORAL 12/13/19 09:00 01/12/20 08:59 UNV Clonazepam (KlonoPIN) 1 mg BID ORAL 12/12/19 18:00 12/19/19 17:59 UNV Digoxin (Lanoxin) 0.125 mg DAILY ORAL 12/13/19 09:00 03/12/20 08:59 UNV Oxycodone HCl (Roxicodone) 15 mg Q8HR PRN ORAL Severe Pain (Pain Scale 7-10) 12/12/19 14:00 12/19/19 13:59 UNV Assessment/Plan Problem List: (1) ACS (acute coronary syndrome) ICD Codes: I20.0 - Unstable angina SNOMED: 513751201 (2) Chest pain ICD Codes: R07.9 - Chest pain, unspecified SNOMED: 17489966 (3) Atrial fibrillation ICD Codes: I48.91 - Unspecified atrial fibrillation SNOMED: 52926063 (4) AICD (automatic cardioverter/defibrillator) present ICD Codes: Z95.810 - Presence of automatic (implantable) cardiac defibrillator SNOMED: 95503376, 884140035 (5) Anxiety ICD Codes: F41.9 - Anxiety disorder, unspecified SNOMED: 19802174 Assessment/Plan: serial ekg, troponin echocardiogram telemetry monitoring cardiology evaluation dvt prophylaxis anticoagulation by cardiology Keith Soares MD Dec 12, 2019 14:02
--- NOTE | 2019-12-12 16:12 | Diagnostic Imaging Report ---
Indication: Dyspnea Comparison: 07/04/2017 A single view chest radiograph was obtained. Findings: No definite infiltrate or pulmonary vascular congestion identified. Pacemaker again noted on the left. The heart is enlarged. The aorta is mildly enlarged consistent with atherosclerotic vascular disease. The bones are osteopenic. There are thoracic vertebral enthesophytes at multiple levels. Impression: No acute disease
[2019-12-12] MEDS ORDERED: Morphine Sulfate 2mg/ml Inj(IV/IM USE ONLY) ONE (16:26)
[2019-12-12 16:34] VITALS: BP 121/76
--- NOTE | 2019-12-12 16:35 | NUR ---
ED Nurse Note: Report given to Micaela BARR.
--- NOTE | 2019-12-12 17:00 | NUR ---
NURSE NOTES: received telephone report from Juliocesar Montelongo. Patient awaiting arrival to the unit.
--- NOTE | 2019-12-12 17:00 | NUR ---
NURSE NOTES: Patient arrived to the unit transported via gurney. Patient is AAOX3. transferred self to bed. ambulatory with steady gait. Patient oriented to room and safety precautions initiated. All belongings accounted for and listed in patients chart. Order was placed by Dr. Soares. VSS. skin intact. Left forearm IV intact and flushing well. Complaining of chest pain. will medicate and monitor patient.
[2019-12-12 17:15] VITALS: BP 126/95
--- NOTE | 2019-12-12 17:17 | NUR ---
ED Nurse Note: Pt cleared by MD to be transported to tele floor. Pt taken with monitor and all belongings. RN present. Received by CORTNEY Douglass
--- NOTE | 2019-12-12 17:30 | NUR ---
NURSE NOTES: Patient arrived to the unit in
[2019-12-12] MEDS: oxyCODONE 15mg IR tab ORAL PRN (17:33)
--- NOTE | 2019-12-12 19:06 | NUR ---
NURSE NOTES: Swabs sent to lab for MRSA/VRE/CRE as per protocol/ Patient came from [facility].
--- NOTE | 2019-12-12 19:28 | NUR ---
HAND-OFF: Report given to Cynthia/Juliocesar Baker. Plan of care endorsed.
--- NOTE | 2019-12-12 19:35 | NUR ---
NURSE NOTES: RECEIVED REPORT FROM CORTNEY HAAS. PATIENT AWAKE, SITTING UP IN BED, ON THE PHONE. DENIES PAIN OR DISCOMFORT. BREATHING EVEN AND UNLABORED ON ROOM AIR, NO COMPLAINTS OF DISTRESS. IV SITE ASYMPTOMATIC. BED LOCKED AND IN LOWEST POSITION. SIDERAILS UP X 1. CALL LIGHT WITHIN REACH. WILL CONTINUE TO MONITOR.
[2019-12-12 20:00] VITALS: BP 119/89
[2019-12-12] MEDS: Carvedilol 25mg Tab ORAL SCH (20:28)
[2019-12-12] MEDS: Heparin 5000 units/ml inj SUBQ SCH (20:31)
--- NOTE | 2019-12-12 23:04 | History & Physical ---
History and Physical History & Physicial Thomas Rivas MD Dec 12, 2019 23:04
[2019-12-13] MEDS: oxyCODONE 15mg IR tab ORAL PRN ×4 (00:49→19:50)
--- NOTE | 2019-12-13 01:45 | History and Physical Report ---
DATE OF ADMISSION: 12/12/2019 CHIEF COMPLAINT: Chest pain. HISTORY OF PRESENT ILLNESS: This 54-year-old gentleman with past medical history significant for chronic atrial fibrillation, congestive heart failure with severe cardiomyopathy, status post pacemaker, and hypertension, who presented to the emergency department complaining about chest pain starting at 10:40 in the morning. He complained about it while he was in a heated conversation that caused him to get and lot of stress. The pain was 10/10 in intensity with lesser chest pressure pain radiated to the left shoulder and left neck, being intermittent. The patient's goes and comes, back not associated with shortness of breath or diaphoresis. The patient denies any fever, chills, nausea, vomiting, or diarrhea. No sick contacts or COVID positive patient contact. The patient received aspirin by EMS. He has allergies to nitroglycerine and subsequently was admitted to the hospital due to the chest pain, possible acute coronary syndrome. PAST MEDICAL/PAST SURGICAL HISTORY: As above, history of chronic atrial fibrillation, congestive heart failure with cardiomyopathy, hypertension, status post pacemaker. MEDICATIONS AT HOME: Please refer to medication reconciliation. ALLERGIES: Baclofen, gabapentin, gentamicin, ibuprofen, ketorolac, lisinopril, and nitroglycerin. SOCIAL HISTORY: Denies any smoking, alcohol, or drugs. FAMILY HISTORY: Noncontributory. REVIEW OF SYSTEMS: Mostly as above. Denies any dysuria, frequency, or hematuria. Denies any hemoptysis, hematochezia, or chest pain. Denies any loss of consciousness. Denies any fever, chills, nausea, or vomiting. PHYSICAL EXAMINATION: VITAL SIGNS: On admission, temperature 97.9, pulse of 89, respirations 16, and blood pressure 101/76. GENERAL: The patient is awake and responsive, in no acute distress. HEAD AND NECK: Pupils are equal and reactive to light. Extraocular muscles intact. Neck was supple. No JVD. LUNGS: Good air entry with no wheezing or rales. HEART: S1, S2, irregular. Pacemaker was noted on left-sided chest wall. ABDOMEN: Soft, nondistended, and nontender. Positive bowel sounds. EXTREMITIES: No cyanosis, clubbing, or edema. NEUROLOGIC: Cranial nerves II through XII grossly normal. Motor is 5/5 in all extremities. Gait is intact. RECTAL/GENITOURINARY: Refused and deferred. PSYCHIATRIC: Mood and affect is intact. LABORATORY DATA: On admission from the emergency department, WBC of 9.0, hemoglobin 15, hematocrit 45, and platelet 168,000. Sodium 135, potassium 4.7, chloride 104, bicarb 25, BUN 17, and creatinine 0.6. Glucose 98. Calcium is 9.2. AST of 26, ALT of 35, alkaline phosphatase 63. First troponin 0.002, second troponin 0.00. BNP of 274. Albumin is 3.7. Chest x-ray was done in the emergency room, no acute cardiopulmonary disease. Pacemaker again was noted in left side of chest wall. Heart is enlarged. ASSESSMENT: 1. Chest pain, possible acute coronary syndrome. 2. Chronic atrial fibrillation. 3. Congestive heart failure. 4. Cardiomyopathy. 5. Status post pacemaker. PLAN: Admit the patient to monitored unit. We will follow up with Dr. Soares from Pulmonary Critical Care. Monitor laboratory in the morning, serial cardiac enzymes. Code status is Full Code. DVT prophylaxis is heparin subcutaneous. Thomas Rivas M.D. DR: LIANNE JOB#: [id number] CC:
[2019-12-13 04:00] VITALS: BP 130/88
--- NOTE | 2019-12-13 05:15 | NUR ---
NURSE NOTES: PATIENT WAS SEEN LEAVING ROOM, TAKING ELEVATOR WITHOUT INFORMING STAFF. INFORMED SECURITY. CHARGE NURSE AND NURSING LOG DECKMAN INFORMED. PATIENT WAS FOUND ON HOSPITAL GROUNDS LOOKING FOR SOMEWHERE TO SMOKE. PATIENT WAS TAKEN BACK TO FLOOR WITH TWO STAFF MEMBERS. PATIENT NOTED TO BE ANXIOUS, EXHIBITING AGGRESSIVE BEHAVIOR TOWARDS STAFF. DR. RIVERA AND DR. VANESSA INFORMED, AWAITING THEIR CALL BACK.
[2019-12-13] MEDS: LORazepam Inj 2mg/ml 1ml IV PRN ×3 (06:10→19:49)
--- NOTE | 2019-12-13 07:18 | NUR ---
HAND-OFF: Report given to CORTNEY RADER. PLAN OF CARE ENDORSED.
--- NOTE | 2019-12-13 07:56 | NUR ---
NURSE NOTES: Received pt in bed, AAO x 4. Ambulatory. RA. No c/o of pain/distress at this moment. IV on RFA 20g noted, with SL. Side rails x 2. Bed in the lowest, locked, and alarm on. Call light within reach. Will continue to monitor.
[2019-12-13 08:00] VITALS: BP 117/78
[2019-12-13 08:26] LABS: BASOPHILS % (AUTO) 0.9 % (0.0-2.0); EOSINOPHILS % (AUTO) 2.7 % (0.0-3.0); HEMATOCRIT 45.6 % (42.0-52.0); HEMOGLOBIN 16.1 G/DL (14.2-18.0); LYMPHOCYTES % (AUTO) 30.9 % (20.0-45.0); MEAN CORPUSCULAR VOLUME 96 FL (80-99); NEUTROPHILS % (AUTO) 52.6 % (45.0-75.0); PLATELET COUNT 140 K/UL (150-450); RED BLOOD COUNT 4.74 M/UL (4.70-6.10); RED CELL DISTRIBUTION WIDTH 10.5 % (11.6-14.8)
[2019-12-13 08:29] LABS: INR 0.9 (0.9-1.1)
[2019-12-13] MEDS: Citalopram Hydrobromide 10mg Tab ORAL SCH ×2 (09:00→09:11)
[2019-12-13] MEDS: Heparin 5000 units/ml inj SUBQ SCH ×2 (09:00→21:00)
[2019-12-13] MEDS: Carvedilol 25mg Tab ORAL SCH ×2 (09:11→20:59)
[2019-12-13] MEDS: Digoxin 0.125mg tab ORAL SCH (09:11)
[2019-12-13 09:28] LABS: TRIGLYCERIDES 376 MG/DL (30-150)
[2019-12-13 09:42] LABS: CHOLESTEROL 134 MG/DL (< 200); HDL CHOLESTEROL 41 MG/DL (40-60)
[2019-12-13 12:00] VITALS: BP 101/62
--- NOTE | 2019-12-13 14:32 | Internal Med Progress Note ---
Subjective Date of Service: Dec 13, 2019 Physician Name Neo Chance Attending Physician Thomas Rivas MD Current Medications Medications (Trade) Dose Ordered Sig/Wm Route PRN Reason Start Time Stop Time Status Last Admin Dose Admin Acetaminophen (Tylenol) 650 mg Q4H PRN ORAL FEVER 12/12/19 14:00 01/11/20 13:59 12/12/19 20:29 Albuterol/ Ipratropium (Albuterol/ Ipratropium) 3 ml EVERY 4 HOURS PRN HHN Shortness of Breath 12/12/19 14:00 12/17/19 13:59 Carvedilol (Coreg) 25 mg EVERY 12 HOURS ORAL 12/12/19 21:00 01/11/20 20:59 12/13/19 09:11 Citalopram Hydrobromide (CeleXA) 10 mg DAILY ORAL 12/13/19 09:00 01/12/20 08:59 Clonazepam (KlonoPIN) 2 mg BID@0600,1800 ORAL 12/13/19 06:00 12/20/19 05:59 12/13/19 06:10 Digoxin (Lanoxin) 0.125 mg DAILY ORAL 12/13/19 09:00 03/12/20 08:59 12/13/19 09:11 Diltiazem HCl (Cardizem) 10 mg EVERY HOUR PRN IV heart rate more than 120 12/12/19 14:00 01/11/20 13:59 Heparin Sodium (Porcine) (Heparin 5000 units/ml) 5,000 units EVERY 12 HOURS SUBQ 12/12/19 21:00 01/26/20 20:59 12/12/19 20:31 Lorazepam (Ativan 2mg/ml 1ml) 1 mg Q4H PRN IV For Anxiety 12/13/19 05:45 12/20/19 05:44 12/13/19 14:00 Ondansetron HCl (Zofran) 4 mg Q6H PRN IVP Nausea & Vomiting 12/12/19 14:00 01/11/20 13:59 Oxycodone HCl (Roxicodone) 15 mg Q6H PRN ORAL Severe Pain (Pain Scale 7-10) 12/13/19 06:45 12/20/19 06:44 12/13/19 13:41 Polyethylene Glycol (Miralax) 17 gm DAILYPRN PRN ORAL Constipation 12/12/19 14:00 01/11/20 13:59 Temazepam (Restoril) 15 mg HSPRN PRN ORAL Insomnia 12/12/19 21:00 12/19/19 20:59 12/12/19 20:27 Allergies: Coded Allergies: BACLOFEN (Unverified Allergy, Unknown, 12/12/19) GABAPENTIN (Unverified Allergy, Unknown, 12/12/19) GENTAMICIN (Unverified Allergy, Unknown, 07/04/17) IBUPROFEN (Unverified Allergy, Unknown, 05/30/14) KETOROLAC (Unverified Allergy, Unknown, 12/12/19) LISINOPRIL (Unverified Allergy, Unknown, 12/12/19) NITROGLYCERIN (Unverified Allergy, Unknown, 07/04/17) ROS Limited/Unobtainable: No Constitutional: Reports: no symptoms HEENT: Reports: no symptoms Cardiovascular: Reports: chest pain Respiratory: Reports: no symptoms Gastrointestinal/Abdominal: Reports: no symptoms Genitourinary: Reports: no symptoms Neurologic/Psychiatric: Reports: no symptoms Subjective 54 YO M admitted with chest pain. Cover for Int Med-Dr Rivas Objective Last Vital Signs Date Time Temp Pulse Resp B/P (MAP) Pulse Ox O2 Delivery O2 Flow Rate FiO2 12/13/19 12:00 97.8 77 20 101/62 (75) 95 12/13/19 08:31 Room Air 12/12/19 12:16 99 Laboratory Tests Test 12/12/19 18:40 12/13/19 07:25 12/13/19 13:59 Troponin I 0.000 ng/mL (0.000-0.056) Pending White Blood Count 6.0 K/UL (4.8-10.8) Red Blood Count 4.74 M/UL (4.70-6.10) Hemoglobin 16.1 G/DL (14.2-18.0) Hematocrit 45.6 % (42.0-52.0) Mean Corpuscular Volume 96 FL (80-99) Mean Corpuscular Hemoglobin 34.0 PG (27.0-31.0) H Mean Corpuscular Hemoglobin Concent 35.3 G/DL (32.0-36.0) Red Cell Distribution Width 10.5 % (11.6-14.8) L Platelet Count 140 K/UL (150-450) L Mean Platelet Volume 6.6 FL (6.5-10.1) Neutrophils (%) (Auto) 52.6 % (45.0-75.0) Lymphocytes (%) (Auto) 30.9 % (20.0-45.0) Monocytes (%) (Auto) 13.0 % (1.0-10.0) H Eosinophils (%) (Auto) 2.7 % (0.0-3.0) Basophils (%) (Auto) 0.9 % (0.0-2.0) Prothrombin Time 9.7 SEC (9.30-11.50) Prothromb Time International Ratio 0.9 (0.9-1.1) Activated Partial Thromboplast Time 26 SEC (23-33) C-Reactive Protein, Quantitative < 0.4 mg/dL (0.00-0.90) Triglycerides Level 376 MG/DL (30-150) H Cholesterol Level 134 MG/DL (< 200) LDL Cholesterol 40 mg/dL (<100) HDL Cholesterol 41 MG/DL (40-60) Cholesterol/HDL Ratio 3.3 (3.3-4.4) Thyroid Stimulating Hormone (TSH) 1.130 uiU/mL (0.358-3.740) Microbiology Date/Time Source Procedure Growth Status 12/12/19 18:45 Rectum Received Intake and Output 12/12/19 12/13/19 19:00 07:00 Intake Total 0 ml 300 ml Balance 0 ml 300 ml Intake Oral 0 ml Other 300 ml # Voids 2 Objective PHYSICAL EXAMINATION: GENERAL: The patient is awake and responsive, in no acute distress. HEAD AND NECK: Pupils are equal and reactive to light. Extraocular muscles intact. Neck was supple. No JVD. LUNGS: Good air entry with no wheezing or rales. HEART: S1, S2, irregular. Pacemaker was noted on left-sided chest wall. ABDOMEN: Soft, nondistended, and nontender. Positive bowel sounds. EXTREMITIES: No cyanosis, clubbing, or edema. NEUROLOGIC: Cranial nerves II through XII grossly normal. Motor is 5/5 in all extremities. Gait is intact. RECTAL/GENITOURINARY: Refused and deferred. PSYCHIATRIC: Mood and affect is intact. Assessment/Plan Assessment/Plan ASSESSMENT: 1. Chest pain, possible acute coronary syndrome. 2. Chronic atrial fibrillation. 3. Congestive heart failure. 4. Cardiomyopathy. 5. Status post pacemaker. PLAN: 1. Admit the patient to monitored unit. 2. Dr. Soares = Pulmonary Critical Care. 3. Cardiology=Dr Wall. Serial cardiac enzymes. 4. Code status is Full Code. 5. DVT prophylaxis is heparin subcutaneous. Neo Chance MD Dec 13, 2019 14:32
--- NOTE | 2019-12-13 15:05 | Cardiac Electrophysiology PN ---
Subjective Subjective Well known to me from [facility]. Medtronic ICD, Fib, CHF,HTN Schedule for stress test Sunday 2168063 Objective Last 24 Hour Vital Signs Date Time Temp Pulse Resp B/P (MAP) Pulse Ox O2 Delivery O2 Flow Rate FiO2 12/13/19 12:00 97.8 77 20 101/62 (75) 95 12/13/19 12:00 83 12/13/19 09:11 90 12/13/19 09:11 90 117/78 12/13/19 08:31 Room Air 12/13/19 08:00 97.0 90 18 117/78 (91) 96 12/13/19 08:00 82 12/13/19 04:00 77 12/13/19 04:00 97.2 77 19 130/88 (102) 97 12/13/19 00:00 78 12/12/19 21:00 Room Air 12/12/19 20:59 98.1 12/12/19 20:28 86 119/89 12/12/19 20:00 82 12/12/19 20:00 98.1 86 18 119/89 (99) 96 12/12/19 17:18 97.9 79 16 123/75 99 Room Air 12/12/19 17:15 97.3 79 18 126/95 (105) 95 12/12/19 17:15 Room Air 12/12/19 17:10 97.9 12/12/19 16:34 97.9 86 18 121/76 98 Room Air Intake and Output 12/12/19 12/13/19 19:00 07:00 Intake Total 0 ml 300 ml Balance 0 ml 300 ml Intake Oral 0 ml Other 300 ml # Voids 2 Laboratory Tests Test 12/12/19 18:40 12/13/19 07:25 12/13/19 14:15 Troponin I 0.000 ng/mL (0.000-0.056) Pending White Blood Count 6.0 K/UL (4.8-10.8) Red Blood Count 4.74 M/UL (4.70-6.10) Hemoglobin 16.1 G/DL (14.2-18.0) Hematocrit 45.6 % (42.0-52.0) Mean Corpuscular Volume 96 FL (80-99) Mean Corpuscular Hemoglobin 34.0 PG (27.0-31.0) H Mean Corpuscular Hemoglobin Concent 35.3 G/DL (32.0-36.0) Red Cell Distribution Width 10.5 % (11.6-14.8) L Platelet Count 140 K/UL (150-450) L Mean Platelet Volume 6.6 FL (6.5-10.1) Neutrophils (%) (Auto) 52.6 % (45.0-75.0) Lymphocytes (%) (Auto) 30.9 % (20.0-45.0) Monocytes (%) (Auto) 13.0 % (1.0-10.0) H Eosinophils (%) (Auto) 2.7 % (0.0-3.0) Basophils (%) (Auto) 0.9 % (0.0-2.0) Prothrombin Time 9.7 SEC (9.30-11.50) Prothromb Time International Ratio 0.9 (0.9-1.1) Activated Partial Thromboplast Time 26 SEC (23-33) C-Reactive Protein, Quantitative < 0.4 mg/dL (0.00-0.90) Triglycerides Level 376 MG/DL (30-150) H Cholesterol Level 134 MG/DL (< 200) LDL Cholesterol 40 mg/dL (<100) HDL Cholesterol 41 MG/DL (40-60) Cholesterol/HDL Ratio 3.3 (3.3-4.4) Thyroid Stimulating Hormone (TSH) 1.130 uiU/mL (0.358-3.740) Microbiology Date/Time Source Procedure Growth Status 12/12/19 18:45 Rectum Received Alan Huffman MD Dec 13, 2019 15:05
[2019-12-13] MEDS ORDERED: Lexiscan 0.4mg/5ml syringe IV PRN (15:09)
[2019-12-13 16:00] VITALS: BP 107/68
--- NOTE | 2019-12-13 16:00 | Consultation ---
DATE OF CONSULTATION: 12/13/2019 CARDIAC ELECTROPHYSIOLOGY CONSULTATION CONSULTING PHYSICIAN: Alan Huffman MD. REFERRING PHYSICIAN: Thomas Rivas MD. REASON FOR CONSULTATION: Management of atrial fibrillation, congestive heart failure, chest pain as well as evaluation of the patient's defibrillator. HISTORY OF PRESENT ILLNESS: The patient is a 54-year-old gentleman, who I am quite familiar with from multiple previous hospitalizations at [facility]. He has history of hypertension, chronic atrial fibrillation, and congestive heart failure as well as history of Medtronic defibrillator implantation, who presented to the emergency room complaining of chest pain around 10:40 that morning. The patient's pain was 10/10. The pain had radiation to the left shoulder and left neck and was intermittent. His EKG showed ventricular-paced rhythm and not interpretable from ischemia perspective. He was at baseline in atrial fibrillation. The patient received aspirin by paramedics and he is allergic to nitroglycerin. The patient was admitted and Cardiology consultation was obtained for further evaluation and management. REVIEW OF SYSTEMS: Negative other than what was mentioned in history of present illness. PAST MEDICAL HISTORY: As mentioned above. FAMILY HISTORY: Noncontributory. SOCIAL HISTORY: He lives in a mcc. Does not smoke or drink alcohol. He is currently at [facility], but he states he does not want to go back to. PHYSICAL EXAMINATION: VITAL SIGNS: Show blood pressure of 101/62, pulse 77, respirations 18, and temperature 97.8. HEAD AND NECK: Showed no JVD. LUNGS: Coarse rhonchi. CARDIOVASCULAR: Shows regular S1 and S2. No gallop or murmur. ABDOMEN: Soft. EXTREMITIES: No pitting edema. SKIN: Defibrillator is in left subclavicular area. LABORATORY AND DIAGNOSTIC DATA: His EKG showed atrial fibrillation with ventricular-paced rhythm. Labs show white count of 6, hemoglobin 16.5, hematocrit 45.6, and platelet count of 140,000. Sodium is 138, potassium is 4.7, BUN of 17, creatinine 0.6. Troponin is negative x2. BNP is 274. His urine-tox is positive . ASSESSMENT AND PLAN: 1. Chest pain. As above, the patient already ruled out for myocardial infarction. EKG is nondiagnostic. He is ventricularly paced. Was. We will schedule the patient for echocardiogram and nuclear stress test for further evaluation and management. It is of note that the patient's preliminary echocardiogram showed EF of 45%. 2. Chronic atrial fibrillation. The rate is currently controlled on digoxin 0.125 mg daily and Coreg 25 mg b.i.d. I will add Eliquis 5 mg b.i.d. to his medical regimen. 3. Status post Medtronic defibrillator implantation. It was interrogated recently at [facility] with normal function. 4. Hypertension. Continue current heart failure therapy. Thank you very much for allowing me to participate in the care of this patient. Please do not hesitate to contact me for any questions regarding my evaluation. Alan Huffman M.D. DR: Quinton JOB#: [id number] CC:
[2019-12-13 18:35] VITALS: BP 107/68
--- NOTE | 2019-12-13 19:36 | NUR ---
HAND-OFF: Report given to CORTNEY Morrison.
--- NOTE | 2019-12-13 19:36 | Pulmonology Progress Note ---
Assessment/Plan Problems: (1) ACS (acute coronary syndrome) (2) Chest pain (3) Atrial fibrillation (4) AICD (automatic cardioverter/defibrillator) present (5) Anxiety Assessment/Plan serial ekg, troponin all negative echocardiogram reviewed, EF of 45% telemetry monitoring dvt prophylaxis anticoagulation by cardiology Subjective ROS Limited/Unobtainable: No Interval Events: no new events Allergies: Coded Allergies: BACLOFEN (Unverified Allergy, Unknown, 12/12/19) GABAPENTIN (Unverified Allergy, Unknown, 12/12/19) GENTAMICIN (Unverified Allergy, Unknown, 07/04/17) IBUPROFEN (Unverified Allergy, Unknown, 05/30/14) KETOROLAC (Unverified Allergy, Unknown, 12/12/19) LISINOPRIL (Unverified Allergy, Unknown, 12/12/19) NITROGLYCERIN (Unverified Allergy, Unknown, 07/04/17) Objective Last 24 Hour Vital Signs Date Time Temp Pulse Resp B/P (MAP) Pulse Ox O2 Delivery O2 Flow Rate FiO2 12/13/19 18:35 97.9 81 19 107/68 (81) 95 12/13/19 16:00 97.9 81 19 107/68 (81) 95 12/13/19 16:00 69 12/13/19 12:00 97.8 77 20 101/62 (75) 95 12/13/19 12:00 83 12/13/19 09:11 90 12/13/19 09:11 90 117/78 12/13/19 08:31 Room Air 12/13/19 08:00 97.0 90 18 117/78 (91) 96 12/13/19 08:00 82 12/13/19 04:00 77 12/13/19 04:00 97.2 77 19 130/88 (102) 97 12/13/19 00:00 78 12/12/19 21:00 Room Air 12/12/19 20:59 98.1 12/12/19 20:28 86 119/89 12/12/19 20:00 82 12/12/19 20:00 98.1 86 18 119/89 (99) 96 Intake and Output 12/12/19 12/13/19 19:00 07:00 Intake Total 0 ml 300 ml Balance 0 ml 300 ml Intake Oral 0 ml Other 300 ml # Voids 2 General Appearance: WD/WN HEENT: normocephalic, atraumatic Respiratory/Chest: chest wall non-tender, lungs clear Cardiovascular: normal rate, regular rhythm Abdomen: normal bowel sounds, soft, non tender Genitourinary: normal external genitalia Extremities: no clubbing Neurologic/Psychiatric: welt stitcher II-XII grossly normal Microbiology Date/Time Source Procedure Growth Status 12/12/19 18:45 Rectum Received Laboratory Tests 12/13/19 07:25: White Blood Count 6.0, Red Blood Count 4.74, Hemoglobin 16.1, Hematocrit 45.6, Mean Corpuscular Volume 96, Mean Corpuscular Hemoglobin 34.0H, Mean Corpuscular Hemoglobin Concent 35.3, Red Cell Distribution Width 10.5L, Platelet Count 140L , Mean Platelet Volume 6.6, Neutrophils (%) (Auto) 52.6, Lymphocytes (%) (Auto) 30.9, Monocytes (%) (Auto) 13.0H, Eosinophils (%) (Auto) 2.7, Basophils (%) ( Auto) 0.9, Prothrombin Time 9.7, Prothromb Time International Ratio 0.9, Activated Partial Thromboplast Time 26, C-Reactive Protein, Quantitative < 0.4, Triglycerides Level 376H, Cholesterol Level 134, LDL Cholesterol 40, HDL Cholesterol 41, Cholesterol/HDL Ratio 3.3, Thyroid Stimulating Hormone (TSH) 1.130 12/13/19 14:15: Troponin I 0.000 Current Medications Medications (Trade) Dose Ordered Sig/Wm Route PRN Reason Start Time Stop Time Status Last Admin Dose Admin Acetaminophen (Tylenol) 650 mg Q4H PRN ORAL FEVER 12/12/19 14:00 01/11/20 13:59 12/12/19 20:29 Albuterol/ Ipratropium (Albuterol/ Ipratropium) 3 ml EVERY 4 HOURS PRN HHN Shortness of Breath 12/12/19 14:00 12/17/19 13:59 Carvedilol (Coreg) 25 mg EVERY 12 HOURS ORAL 12/12/19 21:00 01/11/20 20:59 12/13/19 09:11 Citalopram Hydrobromide (CeleXA) 10 mg DAILY ORAL 12/13/19 09:00 01/12/20 08:59 Clonazepam (KlonoPIN) 2 mg BID@0600,1800 ORAL 12/13/19 06:00 12/20/19 05:59 12/13/19 18:11 Digoxin (Lanoxin) 0.125 mg DAILY ORAL 12/13/19 09:00 03/12/20 08:59 12/13/19 09:11 Diltiazem HCl (Cardizem) 10 mg EVERY HOUR PRN IV heart rate more than 120 12/12/19 14:00 01/11/20 13:59 Heparin Sodium (Porcine) (Heparin 5000 units/ml) 5,000 units EVERY 12 HOURS SUBQ 12/12/19 21:00 01/26/20 20:59 12/12/19 20:31 Lorazepam (Ativan 2mg/ml 1ml) 1 mg Q4H PRN IV For Anxiety 12/13/19 05:45 12/20/19 05:44 12/13/19 14:00 Ondansetron HCl (Zofran) 4 mg Q6H PRN IVP Nausea & Vomiting 12/12/19 14:00 01/11/20 13:59 Oxycodone HCl (Roxicodone) 15 mg Q6H PRN ORAL Severe Pain (Pain Scale 7-10) 12/13/19 06:45 12/20/19 06:44 12/13/19 13:41 Polyethylene Glycol (Miralax) 17 gm DAILYPRN PRN ORAL Constipation 12/12/19 14:00 01/11/20 13:59 Regadenoson (Lexiscan) 0.4 mg ONCE PRN IV CARDIOLOGY 12/13/19 15:09 12/16/19 23:59 Temazepam (Restoril) 15 mg HSPRN PRN ORAL Insomnia 12/12/19 21:00 12/19/19 20:59 12/12/19 20:27 Keith Soares MD Dec 13, 2019 19:36
--- NOTE | 2019-12-13 19:40 | NUR ---
NURSE NOTES: Received pt from CORTNEY Hernandez. Pt awake, alert, and walking around the unit c/o pain. Bed in lowest position. Call light within reach. Will continue to monitor.
[2019-12-13 20:00] VITALS: BP 115/80
--- NOTE | 2019-12-13 22:57 | NUR ---
NURSE NOTES: Pt left unit after being told that he was not allowed to smoke cigarettes while he was here. Secutiry found him downstairs. I explained that if he would like to leave, he can sign the AMA form, he refused and went back to his room. Charge nurse and nursing shuttle fitting supervisor were notified. Pt now in his room. Will continue to monitor.
[2019-12-14] VITALS: BP 118/79
--- NOTE | 2019-12-14 00:01 | NUR ---
NURSE NOTES: Called and left a message with Dr. Rivas regarding changing his ativan IV to PO d/t patient taking out IV and leaving the unit. Awaiting call back.
[2019-12-14] MEDS: LORazepam 1mg tab ORAL PRN ×2 (01:52→08:32)
[2019-12-14] MEDS: oxyCODONE 15mg IR tab ORAL PRN ×2 (01:52→08:33)
[2019-12-14 04:00] VITALS: BP 144/86
--- NOTE | 2019-12-14 06:00 | NUR ---
NURSE NOTES: RE INSERTED IV TO RIGHT FOREARM/GAUGE 20, ASYMPTOMATIC, PATENT.
--- NOTE | 2019-12-14 06:30 | NUR ---
NURSE NOTES: NO SIGNIFICANT CHANGE OF CONDITION NOTED THROUGHOUT THE NIGHT, SAFETY MAINTAINED. NAD.
--- NOTE | 2019-12-14 07:10 | Pulmonology Progress Note ---
Assessment/Plan Problems: (1) ACS (acute coronary syndrome) (2) Chest pain (3) Atrial fibrillation (4) AICD (automatic cardioverter/defibrillator) present (5) Anxiety Assessment/Plan no new complains serial ekg, troponin all negative echocardiogram reviewed, EF of 45% telemetry monitoring stress tesing pending dvt prophylaxis anticoagulation by cardiology Subjective ROS Limited/Unobtainable: No Interval Events: walking up in the hallway Allergies: Coded Allergies: BACLOFEN (Unverified Allergy, Unknown, 12/12/19) GABAPENTIN (Unverified Allergy, Unknown, 12/12/19) GENTAMICIN (Unverified Allergy, Unknown, 07/04/17) IBUPROFEN (Unverified Allergy, Unknown, 05/30/14) KETOROLAC (Unverified Allergy, Unknown, 12/12/19) LISINOPRIL (Unverified Allergy, Unknown, 12/12/19) NITROGLYCERIN (Unverified Allergy, Unknown, 07/04/17) Objective Last 24 Hour Vital Signs Date Time Temp Pulse Resp B/P (MAP) Pulse Ox O2 Delivery O2 Flow Rate FiO2 12/14/19 04:00 97.7 87 18 144/86 (105) 98 12/14/19 04:00 92 12/14/19 00:00 98.8 88 18 118/79 (92) 98 12/14/19 00:00 77 12/13/19 21:00 Room Air 12/13/19 20:59 81 115/80 12/13/19 20:00 98.9 81 18 115/80 (92) 96 12/13/19 20:00 77 12/13/19 18:35 97.9 81 19 107/68 (81) 95 12/13/19 16:00 97.9 81 19 107/68 (81) 95 12/13/19 16:00 69 12/13/19 12:00 97.8 77 20 101/62 (75) 95 12/13/19 12:00 83 12/13/19 09:11 90 12/13/19 09:11 90 117/78 12/13/19 08:31 Room Air 12/13/19 08:00 97.0 90 18 117/78 (91) 96 12/13/19 08:00 82 Intake and Output 12/13/19 12/14/19 19:00 07:00 Intake Total 1560 ml 240 ml Balance 1560 ml 240 ml Intake Oral 1560 ml 240 ml # Voids 5 1 # Bowel Movements 1 General Appearance: WD/WN HEENT: normocephalic, atraumatic Respiratory/Chest: chest wall non-tender, lungs clear Cardiovascular: normal peripheral pulses, normal rate Abdomen: normal bowel sounds, soft, non tender, no organomegaly Genitourinary: normal external genitalia Extremities: no clubbing Skin: no rash Neurologic/Psychiatric: supervisor blood donor recruiters II-XII grossly normal Microbiology Date/Time Source Procedure Growth Status 12/12/19 18:45 Rectum Received Laboratory Tests 12/13/19 07:25: White Blood Count 6.0, Red Blood Count 4.74, Hemoglobin 16.1, Hematocrit 45.6, Mean Corpuscular Volume 96, Mean Corpuscular Hemoglobin 34.0H, Mean Corpuscular Hemoglobin Concent 35.3, Red Cell Distribution Width 10.5L, Platelet Count 140L , Mean Platelet Volume 6.6, Neutrophils (%) (Auto) 52.6, Lymphocytes (%) (Auto) 30.9, Monocytes (%) (Auto) 13.0H, Eosinophils (%) (Auto) 2.7, Basophils (%) ( Auto) 0.9, Prothrombin Time 9.7, Prothromb Time International Ratio 0.9, Activated Partial Thromboplast Time 26, C-Reactive Protein, Quantitative < 0.4, Triglycerides Level 376H, Cholesterol Level 134, LDL Cholesterol 40, HDL Cholesterol 41, Cholesterol/HDL Ratio 3.3, Thyroid Stimulating Hormone (TSH) 1.130 12/13/19 14:15: Troponin I 0.000 Current Medications Medications (Trade) Dose Ordered Sig/Wm Route PRN Reason Start Time Stop Time Status Last Admin Dose Admin Acetaminophen (Tylenol) 650 mg Q4H PRN ORAL FEVER 12/12/19 14:00 01/11/20 13:59 12/12/19 20:29 Albuterol/ Ipratropium (Albuterol/ Ipratropium) 3 ml EVERY 4 HOURS PRN HHN Shortness of Breath 12/12/19 14:00 12/17/19 13:59 Carvedilol (Coreg) 25 mg EVERY 12 HOURS ORAL 12/12/19 21:00 01/11/20 20:59 12/13/19 20:59 Citalopram Hydrobromide (CeleXA) 10 mg DAILY ORAL 12/13/19 09:00 01/12/20 08:59 Clonazepam (KlonoPIN) 2 mg BID@0600,1800 ORAL 12/13/19 06:00 12/20/19 05:59 12/14/19 06:00 Digoxin (Lanoxin) 0.125 mg DAILY ORAL 12/13/19 09:00 03/12/20 08:59 12/13/19 09:11 Diltiazem HCl (Cardizem) 10 mg EVERY HOUR PRN IV heart rate more than 120 12/12/19 14:00 01/11/20 13:59 Heparin Sodium (Porcine) (Heparin 5000 units/ml) 5,000 units EVERY 12 HOURS SUBQ 12/12/19 21:00 01/26/20 20:59 12/12/19 20:31 Lorazepam (Ativan) 1 mg Q4HR PRN ORAL For Anxiety 12/14/19 00:30 12/21/19 00:29 12/14/19 01:52 Ondansetron HCl (Zofran) 4 mg Q6H PRN IVP Nausea & Vomiting 12/12/19 14:00 01/11/20 13:59 Oxycodone HCl (Roxicodone) 15 mg Q6H PRN ORAL Severe Pain (Pain Scale 7-10) 12/13/19 06:45 12/20/19 06:44 12/14/19 01:52 Polyethylene Glycol (Miralax) 17 gm DAILYPRN PRN ORAL Constipation 12/12/19 14:00 01/11/20 13:59 Regadenoson (Lexiscan) 0.4 mg ONCE PRN IV CARDIOLOGY 12/13/19 15:09 12/16/19 23:59 Temazepam (Restoril) 15 mg HSPRN PRN ORAL Insomnia 12/12/19 21:00 12/19/19 20:59 12/13/19 20:59 Keith Soares MD Dec 14, 2019 07:10
--- NOTE | 2019-12-14 07:10 | NUR ---
NURSE NOTES: Received report from CORTNEY Guajardo. Pt awake and walking down the hallway, A/O x4. no s/sx pf acute distress. breathing even and unlabored in room air. Requested the pt to go back to room as he is fall risk due to Ativan. bed on lowest position, call light within reach. Will continue plan of care.
[2019-12-14 08:00] VITALS: BP 119/75
[2019-12-14 08:31] VITALS: BP 119/75
[2019-12-14] MEDS: Digoxin 0.125mg tab ORAL SCH (08:31)
[2019-12-14] MEDS: Carvedilol 25mg Tab ORAL SCH (08:31)
[2019-12-14] MEDS: Citalopram Hydrobromide 10mg Tab ORAL SCH (08:41)
[2019-12-14] MEDS: Heparin 5000 units/ml inj SUBQ SCH (08:47)
--- NOTE | 2019-12-14 08:50 | NUR ---
Patient very agitated, requesting to speak with Administration, yelling and screaming, this Nurse offered to talk to patient in his room, to find out what he needs, insisting to speak to gasoline engine assembler or [employer] Rock Nailer, Nursing Professor/Nurse Anesthetist Notifed of Patients request. Pt. made aware Professor/Nurse Anesthetist will see him . Pt. got more agitated and angry, screaming "i need to talk to distance learning administrator right now!". Refused to take Oral ativan, requesting for IV ativan, Nurse explained to Pt. the order is P.O. Pt. got more Upset. he closed the door of his room.
[2019-12-14 08:57] LABS: ANION GAP 11 mmol/L (5-15); BLOOD UREA NITROGEN 26 mg/dL (7-18); CALCIUM 9.2 MG/DL (8.5-10.1); CARBON DIOXIDE 28 MMOL/L (21-32); CHLORIDE 101 MMOL/L (98-107); CREATININE 0.7 MG/DL (0.55-1.30); SODIUM 140 MMOL/L (136-145)
[2019-12-14 09:04] LABS: BASOPHILS % (AUTO) 0.9 % (0.0-2.0); EOSINOPHILS % (AUTO) 1.9 % (0.0-3.0); HEMATOCRIT 46.8 % (42.0-52.0); LYMPHOCYTES % (AUTO) 15.8 % (20.0-45.0); MEAN CORPUSCULAR VOLUME 98 FL (80-99); MONOCYTES % (AUTO) 8.5 % (1.0-10.0); NEUTROPHILS % (AUTO) 72.9 % (45.0-75.0); PLATELET COUNT 135 K/UL (150-450); RED BLOOD COUNT 4.79 M/UL (4.70-6.10); RED CELL DISTRIBUTION WIDTH 10.7 % (11.6-14.8); WHITE BLOOD COUNT 9.9 K/UL (4.8-10.8)
--- NOTE | 2019-12-14 09:25 | NUR ---
NURSE NOTES: Cardiology came to get a consent from the pt for tomorrow's stress test, pt was not in the room. Checked the entire unit and SDU if pt is up and ad jason, pt not found. Pt eloped the unit with IV access and ID band. Pt left the tele monitor on bedside table. Beforehand, pt was asking for IV ativan and oxycodone. RN administered PO, because there is no order for IV, he refused at first but took it afterwards. RN explained to the pt that RN will try to get an IV order from MD. Pt is very agitated and very upset. Dr Rivas gave an order for IV but the pt eloped already.
--- NOTE | 2019-12-14 20:15 | History and Physical Report ---
DATE OF ADMISSION: 12/12/2019 CHIEF COMPLAINT: The patient is a 54-year-old white male who presents with a chief complaint of chest pain and shortness of breath. HISTORY OF PRESENT ILLNESS: The patient was admitted to [facility] on December 12, 2019. The patient left against medical advice earlier today. The patient returned to the emergency room complaining of chest pain. The patient was also experiencing shortness of breath. The patient was admitted with chest pain and shortness of breath to rule out acute on chronic congestive heart failure. REVIEW OF SYSTEMS: CONSTITUTIONAL: The patient denies weight loss or weight gain. The patient denies fevers or chills. HEENT: The patient denies ear or throat pain. The patient denies headache. CARDIOVASCULAR: The patient complains of chest pain as above. The patient denies palpitations. ABDOMINAL: The patient denies nausea, vomiting, diarrhea, or constipation. CHEST: The patient denies wheezes. The patient complains of shortness of breath as above. NEUROMUSCULAR: The patient denies seizures or generalized weakness. GENITOURINARY: The patient denies dysuria or increased frequency of urination. PAST MEDICAL HISTORY: Significant for: 1. Congestive heart failure. 2. Cardiomyopathy. 3. Atrial fibrillation. 4. Hypertension. PAST SURGICAL HISTORY: Significant for pacemaker implantation. CURRENT MEDICATIONS: 1. Carvedilol 25 mg p.o. twice daily. 2. Citalopram 10 mg p.o. daily. 3. Klonopin 1 mg p.o. twice daily. 4. Pradaxa 150 mg p.o. daily. 5. Digoxin 0.125 mg p.o. daily. 6. [place] 5/325 mg one tablet p.o. q.6h p.r.n. 7. Lorazepam 1 mg p.o. q.6h p.r.n. 8. Meloxicam 15 mg p.o. daily. 9. Oxycodone 15 mg p.o. q.8h p.r.n. 10. Xarelto 20 mg p.o. daily. 11. Temazepam 30 mg p.o. at bedtime. ALLERGIES: 1. Baclofen. 2. Gabapentin. 3. Gentamicin. 4. Ibuprofen. 5. Ketorolac. 6. Lisinopril. 7. Nitroglycerin. SOCIAL HISTORY: The patient is a . The patient is unemployed. The patient was previously a resident of [facility]. The patient denies tobacco or alcohol use. PHYSICAL EXAMINATION: VITAL SIGNS: Temperature 97.0, respirations 15, pulse 70, blood pressure 122/92. GENERAL: The patient is well-developed and well-nourished white male, in no apparent distress. HEENT: Eyes, pupils are equal and responsive to light and accommodation. Extraocular movements are intact. NECK: Supple. No lymphadenopathy. CHEST: Lungs are clear to auscultation bilaterally without wheezes or rales. CARDIOVASCULAR: Regular rate. S1 and S2 normal without murmurs, rubs, or gallops. ABDOMEN: Soft, nontender, and nondistended. Positive bowel sounds. No evidence of hepatosplenomegaly. Currently, no rebound or guarding noted. EXTREMITIES: Negative for clubbing, cyanosis, or edema. RECTAL/GENITAL: Not performed. NEUROLOGIC: Cranial nerves II through XII are grossly intact without focal deficits. Motor strength is 5/5 bilaterally. Deep tendon reflexes are 2+ plantar. LABORATORY STUDIES: WBC 9.4, hemoglobin 15.2, hematocrit 42.8, platelets 124,000. Sodium 137, potassium 4.2, chloride 101, CO2 31, BUN 21, creatinine 0.7, glucose 96. Troponin 0.003. Chest x-ray was reported as bibasilar opacities with differential including atelectasis versus pneumonia. ASSESSMENT: This is a 54-year-old white male. 1. Chest pain. 2. Shortness of breath. 3. Congestive heart failure. 4. Cardiomyopathy. 5. Atrial fibrillation. 6. Hypertension. 7. Pacemaker in situ. TREATMENT: 1. Chest pain. A Cardiology consultation has been obtained with Dr. Grabiel Wall. Serial troponin levels will be performed. The patient has been scheduled for Cardiolite stress test on 12/15/2019. We will follow recommendations of Cardiology. 2. Shortness of breath/congestive heart failure. As above, a Cardiology consultation has been obtained with Dr. Grabiel Wall. The patient is currently receiving intravenous Lasix. We will follow recommendations of Cardiology. An echocardiogram is pending. 3. Atrial fibrillation. Continue Xarelto as above. 4. Hypertension. Continue Coreg as above. 5. Pacemaker in situ. Neo Edward Chance DR: Lonny JOB#: [id number] CC:
--- NOTE | 2019-12-15 19:38 | Discharge Summary ---
Discharge Summary Discharge Summary _ DATE OF ADMISSION: 12/12/2019 DATE OF DISCHARGE: 12/14/2019 Patient eloped REASON FOR ADMISSION: 54 years old male with past medical history significant for chronic atrial fibrillation, congestive heart failure with severe cardiomyopathy, status post AIDr, hypertension, presented to emergency department complaining of chest pain , which started early in the morning. Patient reported that prior to onset of the chest pain he was in heated conversation , which caused him anxiety and stress. Pain reported as 10 out of 10 in intensity. Pain was radiated to the left shoulder and left neck and was intermittent. Chest pain was not associated with shortness of breath or diaphoresis. Patient denied fever or chills., No nausea , vomiting or diarrhea. No sick contacts with positive COVID patients. Patient received aspirin by paramedics. Vital signs were stable . laboratory work-up revealed no leukocytosis, stable hemoglobin, hematocrit and platelet count. Stable electrolytes and renal parameters. Troponin 0.002 , repeated troponin negative, pro BNP 274. Chest x-ray revealed no acute cardiopulmonary pathology. Pacemaker noted on the left side of the chest wall. Cardiomegaly. Patient subsequently admitted to monitored floor for further management. CONSULTANTS: sheet rock installation helper Dr. Stuart costume specialist Dr. Soares [facility]SE: Patient admitted to monitored floor. Echocardiogram demonstrated global left ventricular hypokinesis with left ventricular ejection fraction estimated to be 45%. Mild left ventricular hypertrophy noted. Right ventricular systolic pressure of 18. Serial troponin were negative. EKG was nondiagnostic and showed ventricular pacing. Patient was ruled out for myocardial infarction. Patient was scheduled for nuclear stress test. Heart rate was controlled with digoxin and Coreg. Cold Patcher added anticoagulation with Eliquis to his medication regimen. Defibrillator was recently interrogated at [facility] and showed normal functioning. Guideline directed medical therapy for congestive heart failure continued. Blood pressure was managed with current medication regimen. Lipid panel was stable. TSH within normal limits. Anxiolytic provided as needed. Pain management was addressed. In the morning on 12/13 sheet rock installation helper came to get a consent for stress test , however patient was not in the room. Patient was not found on the unit . Patient eloped FINAL DIAGNOSES: Chest pain, possible acute coronary syndrome Chronic atrial fibrillation Congestive heart failure Cardiomyopathy Status post [employer] defibrillator implantation Hypertension Anxiety I have been assigned to dictate discharge summary for this account. I was not involved in the patient's management. Lucy Valera NP Dec 15, 2019 19:38
== END 2019-12-14 09:35 | disposition left against medical advice (07) | DRG 311 ==
LOC: EDBD 11:22 → EMR 13:01 → 2E 13:19 → EDBEDREQ 16:05 → 2E 23:53
DX: I24.9 Acute ischemic heart disease, unspecified (principal); I48.20 Chronic atrial fibrillation, unspecified; I42.9 Cardiomyopathy, unspecified; R07.9 Chest pain, unspecified; Z88.6 Allergy status to analgesic agent; Z88.1 Allergy status to other antibiotic agents; Z88.8 Allergy status to other drugs, medicaments and biological substances; I11.0 Hypertensive heart disease with heart failure; I50.9 Heart failure, unspecified; Z95.810 Presence of automatic (implantable) cardiac defibrillator; Z79.01 Long term (current) use of anticoagulants; F41.9 Anxiety disorder, unspecified
CPT/HCPCS: 36415; 71045; 80048; 80053; 80061; 80162; 80307; 83880; 84443; 84484; 85025; 85610; 85730; 86140; 87081; 93005; 93306; 96374; 96375; 96376; 99282; 99283; 99285; J2405

== ENCOUNTER 2019-12-14 11:30 | Inpatient (IN) | payer MEDICARE, OTHER ==
[~2019-12-14] VITALS: Ht 167.6 cm; Wt 81.6 kg
--- NOTE | 2019-12-14 11:44 | Emergency Room Report ---
History of Present Illness General Chief Complaint: Chest Pain Source: Patient, Medical Record, EMS Present Illness HPI Patient returns with continued chest pain and shortness of breath. He signed out AGAINST MEDICAL ADVICE. He claims that the IV was caught on a door. He was accused of removing the IV himself. He was requesting IV Ativan and given a dose p.o. He states the anxiety was overwhelming. He describes that left- sided chest pain is pressure and radiating towards his left shoulder. He has a history of coronary artery disease and congestive heart failure. He has an implanted defibrillator. He feels more anxiety than pain at this time. He rates the pain 6/10. Notes pressure and aching. He does have some nausea associated with this. Some nausea. No fevers, chills, sore throat, palpitations, vomiting, diarrhea, dysuria, abdominal pain, shortness of breath, joint pain, rashes, visual changes, dizziness, headache. Allergies: Coded Allergies: BACLOFEN (Unverified Allergy, Unknown, 12/12/19) GABAPENTIN (Unverified Allergy, Unknown, 12/12/19) GENTAMICIN (Unverified Allergy, Unknown, 07/04/17) IBUPROFEN (Unverified Allergy, Unknown, 05/30/14) KETOROLAC (Unverified Allergy, Unknown, 12/12/19) LISINOPRIL (Unverified Allergy, Unknown, 12/12/19) NITROGLYCERIN (Unverified Allergy, Unknown, 07/04/17) COVID-19 Screening Contact w/high risk pt: No Recent Travel to affected area: No Experienced COVID-19 symptoms?: No Patient History Past Medical History: see triage record Past Surgical History: pacemaker - Implanted defibrillator Social History: Denies: smoking, alcohol use, drug use Social History Narrative Isabelle Fernandez Reviewed Nursing Documentation: PMH: Agreed; PSxH: Agreed Nursing Documentation-PMH Hx Cardiac Problems: Yes - Atrial fib Hx Pacemaker: Yes Hx Asthma: Yes Hx Cancer: No Hx Gastrointestinal Problems: No Hx Neurological Problems: Yes Hx Cerebrovascular Accident: Yes Review of Systems All Other Systems: negative except mentioned in HPI Physical Exam Vital Signs Date Time Temp Pulse Resp B/P (MAP) Pulse Ox O2 Delivery O2 Flow Rate FiO2 12/14/19 11:31 97.0 70 15 122/92 (102) 99 Room Air 12/14/19 11:55 99 Sp02 EP Interpretation: reviewed, normal General Appearance: GCS 15 - More anxiety, non-toxic, mild distress Head: normocephalic Eyes: bilateral eye PERRL, bilateral eye EOMI, bilateral eye Scleral Injection ENT: moist mucus membranes Neck: supple Respiratory: lungs clear, normal breath sounds Cardiovascular #1: regular rate, rhythm, no edema Cardiovascular #2: 2+ radial (R) Gastrointestinal: normal inspection, normal bowel sounds, non tender, no mass, non-distended Musculoskeletal: back normal, normal range of motion, no calf tenderness, gait/ station normal Neurologic: alert, oriented x3, grossly normal Psychiatric: anxious Skin: warm/dry, Ecchymosis/Bruising Medical Decision Making Diagnostic Impression: Primary Impression: ACS (acute coronary syndrome) Additional Impression: Anxiety ER Course Patient with multiple cardiac risk factors presents with chest pain and anxiety. Differential includes acute coronary syndrome, acute myocardial infarction, drug-seeking behavior, anxiety, some matization, electrolyte imbalance amongst others. Evaluation with EKG, chest x-ray and labs. As patient mainly complaining about anxiety Ativan is given. EKG no injury. Chest x-ray no infiltrates. Labs with initial troponin negative. Complex patient with psychological overlay however multiple cardiac risk factors. Because of this patient admitted to the hospital to exclude cardiac injury. Patient improved with treatment with decreased pain and anxiety. Admit telemetry observation. Laboratory Tests Test 12/14/19 12:02 12/14/19 12:08 White Blood Count 9.4 K/UL (4.8-10.8) Red Blood Count 4.48 M/UL (4.70-6.10) L Hemoglobin 15.2 G/DL (14.2-18.0) Hematocrit 42.8 % (42.0-52.0) Mean Corpuscular Volume 96 FL (80-99) Mean Corpuscular Hemoglobin 33.9 PG (27.0-31.0) H Mean Corpuscular Hemoglobin Concent 35.5 G/DL (32.0-36.0) Red Cell Distribution Width 10.2 % (11.6-14.8) L Platelet Count 124 K/UL (150-450) L Mean Platelet Volume 8.5 FL (6.5-10.1) Neutrophils (%) (Auto) 71.1 % (45.0-75.0) Lymphocytes (%) (Auto) 15.0 % (20.0-45.0) L Monocytes (%) (Auto) 11.4 % (1.0-10.0) H Eosinophils (%) (Auto) 1.9 % (0.0-3.0) Basophils (%) (Auto) 0.6 % (0.0-2.0) Sodium Level 137 MMOL/L (136-145) Potassium Level 4.2 MMOL/L (3.5-5.1) Chloride Level 101 MMOL/L (98-107) Carbon Dioxide Level 31 MMOL/L (21-32) Anion Gap 5 mmol/L (5-15) Blood Urea Nitrogen 21 mg/dL (7-18) H Creatinine 0.7 MG/DL (0.55-1.30) Estimated Glomerular Filtration Rate > 60 mL/min (>60) Glucose Level 96 MG/DL (74-106) Calcium Level 9.1 MG/DL (8.5-10.1) Total Bilirubin 0.6 MG/DL (0.2-1.0) Aspartate Amino Transferase (AST) 28 U/L (15-37) Alanine Aminotransferase (ALT) 32 U/L (12-78) Alkaline Phosphatase 59 U/L (46-116) Troponin I 0.003 ng/mL (0.000-0.056) Pro-B-Type Natriuretic Peptide 382 pg/mL (0-125) H Total Protein 7.6 G/DL (6.4-8.2) Albumin 3.7 G/DL (3.4-5.0) Globulin 3.9 g/dL Albumin/Globulin Ratio 0.9 (1.0-2.7) L Urine Opiates Screen Negative (NEGATIVE) Urine Barbiturates Screen Negative (NEGATIVE) Phencyclidine (PCP) Screen Negative (NEGATIVE) Urine Amphetamines Screen Negative (NEGATIVE) Urine Benzodiazepines Screen Negative (NEGATIVE) Urine Cocaine Screen Negative (NEGATIVE) Urine Marijuana (THC) Screen Positive (NEGATIVE) H EKG Diagnostic Results Rate: normal Rhythm: other - paced ST Segments: no acute changes Rhythm Strip Diag. Results EP Interpretation: yes Rhythm: no PVC's, no ectopy, other - paced Chest X-Ray Diagnostic Results Chest X-Ray Diagnostic Results : Chest X-Ray Ordered: Yes # of Views/Limited/Complete: 1 View Indication: Chest Pain Interpretation: no effusion, no pneumothorax, other - Bibasilar increase pritchard Impression: Other Electronically Signed by: Electronically signed by Benny Sampson MD Last Vital Signs Date Time Temp Pulse Resp B/P (MAP) Pulse Ox O2 Delivery O2 Flow Rate FiO2 12/14/19 17:54 Room Air 12/14/19 13:30 98.1 122 16 127/76 99 12/14/19 11:55 99 Status: improved Disposition: PLACE IN OBSERVATION Condition: Serious Benny Sampson MD Dec 14, 2019 11:44
[2019-12-14] MEDS ORDERED: LORazepam Inj 2mg/ml 1ml IV ONE (11:45)
[2019-12-14 11:55] VITALS: BP 125/90
--- NOTE | 2019-12-14 11:55 | NUR ---
ED Nurse Note: Pt came in to ED w/ chest pain 10/10 L side radiating to L neck. Pt has pain on and off for past 4 days. Pt is alert and orientedx4, ambulatory. Pt needs med clearance to return to [facility]. Pt set up monitor.
--- NOTE | 2019-12-14 12:11 | Diagnostic Imaging Report ---
EXAM: XR Chest, 1 View CLINICAL HISTORY: CP TECHNIQUE: Frontal view of the chest. COMPARISON: Chest radiograph on 12/12/2019 FINDINGS: Hardware: None. Lungs/pleura: Bibasilar opacities. Small pleural effusions are not excluded, particularly on the left. Heart/mediastinum: Stable mild enlargement of the cardiac silhouette. After squatty consultations in the aorta. Left-sided pacemaker/AICD. Soft tissues: Unremarkable. Bones: No acute fracture. Degenerative changes of the spine. Upper abdomen: Normal. IMPRESSION: Bibasilar opacities may represent atelectasis versus pneumonia. Small pleural effusions are not excluded, particularly on the left.
[2019-12-14 12:17] LABS: BASOPHILS % (AUTO) 0.6 % (0.0-2.0); EOSINOPHILS % (AUTO) 1.9 % (0.0-3.0); HEMATOCRIT 42.8 % (42.0-52.0); HEMOGLOBIN 15.2 G/DL (14.2-18.0); MEAN CORPUSCULAR VOLUME 96 FL (80-99); MONOCYTES % (AUTO) 11.4 % (1.0-10.0); NEUTROPHILS % (AUTO) 71.1 % (45.0-75.0); PLATELET COUNT 124 K/UL (150-450); RED BLOOD COUNT 4.48 M/UL (4.70-6.10); RED CELL DISTRIBUTION WIDTH 10.2 % (11.6-14.8); WHITE BLOOD COUNT 9.4 K/UL (4.8-10.8)
[2019-12-14 12:24] LABS: ANION GAP 5 mmol/L (5-15); BLOOD UREA NITROGEN 21 mg/dL (7-18); CALCIUM 9.1 MG/DL (8.5-10.1); CARBON DIOXIDE 31 MMOL/L (21-32); CHLORIDE 101 MMOL/L (98-107); CREATININE 0.7 MG/DL (0.55-1.30); POTASSIUM 4.2 MMOL/L (3.5-5.1); SODIUM 137 MMOL/L (136-145)
[2019-12-14 12:29] LABS: ALANINE AMINOTRANSFERASE 32 U/L (12-78); ALBUMIN 3.7 G/DL (3.4-5.0); ALBUMIN/GLOBULIN RATIO 0.9 (1.0-2.7); ALKALINE PHOSPHATASE 59 U/L (46-116); ASPARTATE AMINO TRANSFERASE 28 U/L (15-37); BILIRUBIN,TOTAL 0.6 MG/DL (0.2-1.0)
--- NOTE | 2019-12-14 13:18 | NUR ---
ED Nurse Note: Report given to Nelly BARR.
--- NOTE | 2019-12-14 13:20 | NUR ---
ED Nurse Note: Pt cleared to be transferred to tele by . Pt is alert and orientedx4, trasnported with RN and monitor. Pt received by CORTNEY Ramirez.
[2019-12-14 13:30] VITALS: BP 127/76
--- NOTE | 2019-12-14 13:35 | NUR ---
NURSE NOTES: Admitted pt in stable condition. pt on cardiac rehabilitation specialist to signs or complaints of chest pain or respiratory distress. Belonging sheet was signed by pt, pt has cell ph and hostler helper plus back pack. He is missing his sweater with dayamiie, pt never arrived to tele unit with it. Bed in lowest position, call light within reach. Pt feel asleep as soon as he laid in bed and is resting comfortably at this time. will continue to monitor pt.
--- NOTE | 2019-12-14 16:54 | Cardiac Electrophysiology PN ---
Assessment/Plan Assessment/Plan 1. Chest pain. Already ruled out for myocardial infarction. EKG is nondiagnostic. He is ventricularly paced. We will schedule the patient for nuclear stress test. Echo EF of 45%. 2. Chronic atrial fibrillation. On digoxin 0.125 mg daily and Coreg 25 mg b.i.d. and Eliquis 5 mg b.i.d. 3. Status post Medtronic defibrillator implantation. Interrogated recently at [facility] [place] with normal function. 4. Hypertension. Continue current heart failure therapy. Subjective Subjective Eloped and came back. Objective Last 24 Hour Vital Signs Date Time Temp Pulse Resp B/P (MAP) Pulse Ox O2 Delivery O2 Flow Rate FiO2 12/14/19 13:30 98.1 122 16 127/76 99 Room Air 12/14/19 11:55 78 16 Room Air 99 12/14/19 11:55 97.0 82 16 125/90 99 Room Air 12/14/19 11:31 97.0 70 15 122/92 (102) 99 Room Air Intake and Output 12/13/19 12/14/19 19:00 07:00 # Bowel Movements 1 Laboratory Tests Test 12/14/19 12:02 12/14/19 12:08 White Blood Count 9.4 K/UL (4.8-10.8) Red Blood Count 4.48 M/UL (4.70-6.10) L Hemoglobin 15.2 G/DL (14.2-18.0) Hematocrit 42.8 % (42.0-52.0) Mean Corpuscular Volume 96 FL (80-99) Mean Corpuscular Hemoglobin 33.9 PG (27.0-31.0) H Mean Corpuscular Hemoglobin Concent 35.5 G/DL (32.0-36.0) Red Cell Distribution Width 10.2 % (11.6-14.8) L Platelet Count 124 K/UL (150-450) L Mean Platelet Volume 8.5 FL (6.5-10.1) Neutrophils (%) (Auto) 71.1 % (45.0-75.0) Lymphocytes (%) (Auto) 15.0 % (20.0-45.0) L Monocytes (%) (Auto) 11.4 % (1.0-10.0) H Eosinophils (%) (Auto) 1.9 % (0.0-3.0) Basophils (%) (Auto) 0.6 % (0.0-2.0) Sodium Level 137 MMOL/L (136-145) Potassium Level 4.2 MMOL/L (3.5-5.1) Chloride Level 101 MMOL/L (98-107) Carbon Dioxide Level 31 MMOL/L (21-32) Anion Gap 5 mmol/L (5-15) Blood Urea Nitrogen 21 mg/dL (7-18) H Creatinine 0.7 MG/DL (0.55-1.30) Estimat Glomerular Filtration Rate > 60 mL/min (>60) Glucose Level 96 MG/DL (74-106) Calcium Level 9.1 MG/DL (8.5-10.1) Total Bilirubin 0.6 MG/DL (0.2-1.0) Aspartate Amino Transf (AST/SGOT) 28 U/L (15-37) Alanine Aminotransferase (ALT/SGPT) 32 U/L (12-78) Alkaline Phosphatase 59 U/L (46-116) Troponin I 0.003 ng/mL (0.000-0.056) Total Protein 7.6 G/DL (6.4-8.2) Albumin 3.7 G/DL (3.4-5.0) Globulin 3.9 g/dL Albumin/Globulin Ratio 0.9 (1.0-2.7) L Urine Opiates Screen Negative (NEGATIVE) Urine Barbiturates Screen Negative (NEGATIVE) Phencyclidine (PCP) Screen Negative (NEGATIVE) Urine Amphetamines Screen Negative (NEGATIVE) Urine Benzodiazepines Screen Negative (NEGATIVE) Urine Cocaine Screen Negative (NEGATIVE) Urine Marijuana (THC) Screen Positive (NEGATIVE) H Objective HEAD AND NECK: No JVD. LUNGS: Coarse rhonchi. CARDIOVASCULAR: Regular S1 and S2. No gallop or murmur. ABDOMEN: Soft. EXTREMITIES: No pitting edema. SKIN: Defibrillator is in left subclavicular area. Alan Huffman MD Dec 14, 2019 16:54
--- NOTE | 2019-12-14 18:00 | History & Physical ---
History and Physical History & Physicial Dictated for Int Med-[facility] no. [id number] Neo Chance MD Dec 14, 2019 18:00
--- NOTE | 2019-12-14 18:40 | NUR ---
NURSE NOTES: Pt. does not want to stay in the hospital and is leaving AMA, because he does not like the hospital. Pt is extremely agitated and very demanding and is saying he will leave again just how he left earlier. He is aware of his condition, and knows that if he needs to return to the hospital he may go into ER to get assistance. Pt took all his belongings including smelter charger and phone with him when he left the unit. Pt took off IV by himself before I got into the room, pt is not bleeding. Pt also took off rn surgical pcu and brought it to the front end mechanic.
[2019-12-14] MEDS ORDERED: Eliquis 5mg tablet ORAL SCH (21:00)
[2019-12-14] MEDS ORDERED: Carvedilol 25mg Tab ORAL SCH (21:00)
--- NOTE | 2019-12-15 00:30 | Consultation ---
DATE OF CONSULTATION: CONSULTING PHYSICIAN: Gabriella Stokes MD HISTORY OF PRESENT ILLNESS: Mika Tobias is a 54-year-old male with a history of anxiety disorder, depression admitted to the hospital for medical stabilization. The patient is well known to this physician from prior admission as well as at [facility]. The patient is demanding. He is demanding to be prescribed clonidine twice a day. The patient is easily agitated. He is calm, cooperative with examination. Poor insight. He is having behavior issues. PAST PSYCHIATRIC HISTORY: Significant for anxiety and agitation. PAST MEDICAL HISTORY: Significant for hypertension, hyperlipidemia. ALLERGIES: No known drug allergies. SUBSTANCE ABUSE HISTORY: Significant for marijuana. MENTAL STATUS EXAMINATION: The patient is alert, oriented times self, place, situation. Mood is anxious. Affect is flat. Thought process is concrete. Thought content, no suicidal or homicidal ideation. ASSESSMENT: [place] I Alcohol dependence, alcohol withdrawal. [place] II Deferred. [place] III As above. [place] IV Low. [place] V 20. PLAN: 1. Patient will be continued on current medication. 2. Provide the patient with reality orientation and supportive therapy and reality orientation. Gabriella Stokes M.D. DR: RUBY JOB#: [id number] CC:
[2019-12-15] MEDS ORDERED: Citalopram Hydrobromide 10mg Tab ORAL SCH (09:00)
[2019-12-15] MEDS ORDERED: Digoxin 0.125mg tab ORAL SCH (09:00)
--- NOTE | 2019-12-15 20:06 | Discharge Summary ---
Discharge Summary Discharge Summary _ DATE OF ADMISSION: 12/14/2019 DATE OF DISCHARGE: 12/14/2019 Patient sign AGAINST MEDICAL ADVICE REASON FOR ADMISSION: 54 years old male with past medical history of atrial fibrillation, , congestive heart failure, cardiomyopathy, AICD, hypertension , eloped earlier the same day , presented to emergency room complaining of chest pain and shortness of breath . Patient reports reported anxiety. Patient reported left-sided chest pain, pressure-like with radiation to left shoulder. Patient reported that he felt more anxiety than pain. Pain rated a 6 out of 10, pressure-like and aching. No fever or chills. No palpitations or diaphoresis. No abdominal pain, vomiting or diarrhea. He reported some nausea . Upon evaluation vital signs were stable. Laboratory work-up revealed no leukocytosis,stable hemoglobin, hematocrit and platelet count. Stable electrolytes and renal parameters. Glucose 96. Stable LFT. Troponin 0.003. Pro BNP 382. Urine toxicology screen was positive for marijuana. EKG reveals ventricularly paced rhythm. Chest x-ray demonstrated bibasilar opacity probably representing atelectasis .Small pleural effusion was not excluded. In emergency department patient received Ativan and admitted to monitored floor for further management. CONSULTANTS: tire changer aircraft Dr. Stuart psychiatrist [facility] COU[facility]SE: Patient admitted to telemetry floor. Serial troponin were ordered. Resourcing Advisor followed . Patient was scheduled for Cardiolite stress test the next day. Guideline directed medical therapy for congestive heart failure resumed. Xarelto continued. Blood pressure was managed with the current antihypertensive regimen. Psychiatrost seen patient. Patient was continued on his current antidepressive and anxiolytic medication. Patient was provided with reality orientation and supportive therapy. Later the same day patient became extremely agitated and decided to ;eave AMA. The risks and consequences of signing AGAINST MEDICAL ADVICE were discussed with patient in detail. Patient verbalized understanding, nevertheless signed AMA form and left. FINAL DIAGNOSES: Chest pain Shortness of breath Congestive heart failure Cardiomyopathy Atrial fibrillation Hypertension AICD Anxiety I have been assigned to dictate discharge summary for this account. I was not involved in the patient's management. Lucy Valera NP Dec 15, 2019 20:06
--- NOTE | 2019-12-18 11:06 | Coder Physician Query ---
Clarification is required for compliance, coding accuracy, and to reflect severity of illness for this patient Dear Dr. VANESSA Remy: 12/18/19 Bus Cleaner: [facility] CHEST PAIN QUERY -- Patient reported left-sided chest pain, pressure-like with radiation to left shoulder. Patient reported that he felt more anxiety than pain. Pain rated a 6 out of 10, pressure-like and aching. Troponin 0.003. Pro BNP 382. Urine toxicology screen was positive for marijuana. EKG reveals ventricularly paced rhythm. Chest x-ray demonstrated bibasilar opacity probably representing atelectasis .Small pleural effusion was not excluded. In emergency department patient received Ativan and admitted to monitored floor for further management. FINAL DIAGNOSES: Chest pain Please document the suspected etiology of Chest Pain: [] Anxiety [] Cancer [] Pneumonia [x] Costochondritis [] Pneumothorax [] GERD/Esophagitis [] Pulmonary embolism [] Other: [] Unable to determine [] Acute Coronary Syndrome BRITTANY VANESSA M.D. Date Please also document in your Progress Notes and/or Discharge Summary and indicate if the condition was present on admission. [email or web address]
--- NOTE | 2019-12-18 14:40 | NUR ---
POST DC NOTE Angel (girlfriend) [phone]
== END 2019-12-14 20:27 | disposition left against medical advice (07) | DRG 206 ==
LOC: EDBD 11:30 → EMR 11:44 → EDBEDREQ 13:18 → OBSVTOIN 13:23 → 2E 13:23
DX: M94.0 Chondrocostal junction syndrome [Tietze] (principal); I42.9 Cardiomyopathy, unspecified; F10.239 Alcohol dependence with withdrawal, unspecified; I48.20 Chronic atrial fibrillation, unspecified; F41.9 Anxiety disorder, unspecified; R06.02 Shortness of breath; Z79.01 Long term (current) use of anticoagulants; I11.0 Hypertensive heart disease with heart failure; Z95.810 Presence of automatic (implantable) cardiac defibrillator
CPT/HCPCS: 36415; 71045; 80053; 80307; 83880; 84484; 85025; 96374; 99285

== ENCOUNTER 2019-12-14 19:51 | Emergency (ER) | payer MEDICARE, OTHER ==
[~2019-12-14] VITALS: Ht 167.6 cm; Wt 89.8 kg
--- NOTE | 2019-12-14 20:10 | NUR ---
ED Nurse Note: Patient walked in to ER c/o CP. Patient signed AMA twise from upstairs. Patient presented anxious, AAO x 4, VSS at this time, EKG was performed in triage room, patient has ventricular paced rythm. Dr. Parra spoke with patient, and explained his condition. Patient was able to ambulate with steady gait, has non-labored breathing, pt's O2 sat 98% on RA.
[2019-12-14 20:14] VITALS: BP 140/97
[2019-12-14 20:15] VITALS: BP 140/97
--- NOTE | 2019-12-14 20:20 | NUR ---
ED Nurse Note: Pt cleared by health care Provider for discharge. DC instructions/prescription was given and explained to pt and verbalized understanding of teachings. All medical deviecs such as ID band removed. Pt is AAO x4, ambulatory and left with all personal belongings.
--- NOTE | 2019-12-14 20:30 | Emergency Room Report ---
History of Present Illness General Chief Complaint: Chest Pain Source: Patient Present Illness HPI 54-year-old male who was admitted to the hospital earlier today, signed out AGAINST MEDICAL ADVICE presented back to the emergency room states he is having chest pain. He states he was not getting the treatment he wanted upstairs. He is requesting Ativan and IV narcotics. Patient does have a history of hypertension CHF and atrial fibrillation. Patient was admitted 2 days ago for the same and again left AGAINST MEDICAL ADVICE stating he was not getting the medications he wanted. He was seen by cardiology 2 days ago and today and has had myocardial infarction ruled out. Patient does have outpatient cardiology and primary care doctor. Allergies: Coded Allergies: BACLOFEN (Unverified Allergy, Unknown, 12/12/19) GABAPENTIN (Unverified Allergy, Unknown, 12/12/19) GENTAMICIN (Unverified Allergy, Unknown, 07/04/17) IBUPROFEN (Unverified Allergy, Unknown, 05/30/14) KETOROLAC (Unverified Allergy, Unknown, 12/12/19) LISINOPRIL (Unverified Allergy, Unknown, 12/12/19) NITROGLYCERIN (Unverified Allergy, Unknown, 07/04/17) COVID-19 Screening Contact w/high risk pt: No Recent Travel to affected area: No Experienced COVID-19 symptoms?: No Patient History Reviewed Nursing Documentation: PMH: Agreed; PSxH: Agreed Nursing Documentation-PMH Hx Cardiac Problems: Yes - Atrial fib Hx Pacemaker: Yes Hx Asthma: Yes Hx Cancer: No Hx Gastrointestinal Problems: No Hx Neurological Problems: Yes Hx Cerebrovascular Accident: Yes Review of Systems All Other Systems: negative except mentioned in HPI Physical Exam Vital Signs Date Time Temp Pulse Resp B/P (MAP) Pulse Ox O2 Delivery O2 Flow Rate FiO2 12/14/19 20:14 98.2 78 18 140/97 (111) 99 Room Air Sp02 EP Interpretation: reviewed, normal General Appearance: well appearing, no apparent distress Head: normocephalic, atraumatic Eyes: bilateral eye PERRL, bilateral eye EOMI ENT: hearing grossly normal, moist mucus membranes Neck: full range of motion, supple Respiratory: lungs clear, normal breath sounds, no rhonchi, no respiratory distress, no retraction, no wheezing Cardiovascular #1: normal peripheral pulses, regular rate, rhythm, no murmur Gastrointestinal: non tender, soft, non-distended, no guarding Neurologic: alert, oriented x3, no focal defects Skin: normal color, warm/dry Medical Decision Making Diagnostic Impression: Primary Impression: Malingering Additional Impression: Atypical chest pain ER Course Patient presented complaining of chest pain. He was admitted to the hospital today for the same. He was seen by cardiology and had myocardial infarction has been ruled out. Patient also admitted 2 days ago and was seen by cardiology at that time as well. Patient was requesting IV medications. He has multiple drug allergies. I suspect malingering and drug-seeking behavior. EKG did show a ventricular paced rhythm which was similar to previous. At this time I do not believe patient requires an additional work-up or admission to the hospital. I instructed him to follow-up with his outpatient lead trainer. Patient was stable for discharge EKG Diagnostic Results EP Interpretation: Regis Parra Other Impression Ventricular paced rhythm, rate of 77, Poor baseline, Similar to previous EKG. Abnormal EKG Last Vital Signs Date Time Temp Pulse Resp B/P (MAP) Pulse Ox O2 Delivery O2 Flow Rate FiO2 4//20 20:14 98.2 78 18 140/97 (111) 99 Room Air Status: unchanged Disposition: HOME, SELF-CARE Condition: Stable Patient Instructions: Nonspecific Chest Pain Additional Instructions: Patient is instructed to follow-up with her primary care doctor, primary care clinic or county clinic in 1 to 2 days. Patient instructed to return for any worsening symptoms or concerns. Please note that the documentation in this note was used with [employer] technology. Pleae be advised that this may lead to erroneous text due to misinterpretation by the dictation software Regis Prara M.D. Dec 14, 2019 20:30
== END 2019-12-14 20:20 | disposition home or self-care (01) ==
LOC: EMR 20:16
DX: R07.89 Other chest pain (principal); Z76.5 Malingerer [conscious simulation]; I11.0 Hypertensive heart disease with heart failure; I50.9 Heart failure, unspecified; Z88.8 Allergy status to other drugs, medicaments and biological substances; Z88.6 Allergy status to analgesic agent; Z95.0 Presence of cardiac pacemaker; Z86.73 Personal history of transient ischemic attack (TIA), and cerebral infarction without residual deficits
CPT/HCPCS: 99283

== ENCOUNTER 2019-12-14 21:39 | Emergency (ER) | payer MEDICARE, OTHER ==
[~2019-12-14] VITALS: Ht 170.2 cm; Wt 86.2 kg
--- NOTE | 2019-12-14 21:45 | NUR ---
ED Nurse Note: Patient was BIBA RA 61 due to CP. Patient signed AMA twice from upstairs, was seen by Dr. Parra earlier today and was DC. Patient AAO x4, VSS at this time, skin is warm to touch.
[2019-12-14 21:50] VITALS: BP 127/78
--- NOTE | 2019-12-14 22:09 | Emergency Room Report ---
History of Present Illness General Chief Complaint: Chest Pain Source: Patient, EMS Present Illness HPI Disclaimer: Please note that this report is being documented using [employer] technology. This can lead to erroneous entry secondary to incorrect interpretation by the dictating instrument. HPI: Patient is a 54-year-old male seen by me approximately 1 hour ago. Patient has a history of hypertension, pacemaker, atrial fibrillation. Is admitted to the hospital today for chest pain. He left AGAINST MEDICAL ADVICE and came down to the ER to check back in. I did do an EKG at that time which was unchanged from previous. Again patient had been seen by cardiology today who had ruled out myocardial infarction. Patient had been admitted 2 days ago for chest pain as well and again left AGAINST MEDICAL ADVICE. He was requesting IV narcotics and Ativan. I did not believe patient required an additional work-up so he was discharged. I did suspect malingering. Patient then called 911 was brought back to the ER. At this time police were called and patient was placed in custody. Allergies: Coded Allergies: BACLOFEN (Unverified Allergy, Unknown, 12/12/19) GABAPENTIN (Unverified Allergy, Unknown, 12/12/19) GENTAMICIN (Unverified Allergy, Unknown, 07/04/17) IBUPROFEN (Unverified Allergy, Unknown, 05/30/14) KETOROLAC (Unverified Allergy, Unknown, 12/12/19) LISINOPRIL (Unverified Allergy, Unknown, 12/12/19) NITROGLYCERIN (Unverified Allergy, Unknown, 07/04/17) COVID-19 Screening Contact w/high risk pt: No Recent Travel to affected area: No Experienced COVID-19 symptoms?: No Patient History Reviewed Nursing Documentation: PMH: Agreed; PSxH: Agreed Nursing Documentation-PMH Hx Cardiac Problems: Yes - Atrial fib Hx Pacemaker: Yes Hx Asthma: Yes Hx Cancer: No Hx Gastrointestinal Problems: No Hx Neurological Problems: Yes Hx Cerebrovascular Accident: Yes Review of Systems All Other Systems: negative except mentioned in HPI Physical Exam Vital Signs Date Time Temp Pulse Resp B/P (MAP) Pulse Ox O2 Delivery O2 Flow Rate FiO2 12/14/19 21:45 98.2 78 20 127/78 (94) 98 Room Air Sp02 EP Interpretation: reviewed, normal General Appearance: well appearing, no apparent distress Head: normocephalic, atraumatic Eyes: bilateral eye PERRL, bilateral eye EOMI ENT: hearing grossly normal, moist mucus membranes Neck: full range of motion, supple Respiratory: lungs clear, normal breath sounds, no rhonchi, no respiratory distress, no retraction, no wheezing Cardiovascular #1: normal peripheral pulses, regular rate, rhythm, no murmur Gastrointestinal: non tender, soft, non-distended, no guarding Neurologic: alert, oriented x3, no focal defects Skin: normal color, warm/dry Medical Decision Making Diagnostic Impression: Primary Impression: Malingering ER Course Patient again presented back to the ER by EMS. Again I did feel patient required additional work-up at this time. Patient seen this morning and admitted to the hospital was seen by cardiology today. Was discharged. He did leave AGAINST MEDICAL ADVICE. He also left AGAINST MEDICAL ADVICE 2 days ago. At this time patient was medically cleared for booking. Patient discharged in custody. Last Vital Signs Date Time Temp Pulse Resp B/P (MAP) Pulse Ox O2 Delivery O2 Flow Rate FiO2 20 21:45 98.2 78 20 127/78 (94) 98 Room Air Disposition: LAW ENFORCEMENT IN CUST Referrals: NON PHYSICIAN (PCP) Regis Parra M.D. Dec 14, 2019 22:09
--- NOTE | 2019-12-14 22:10 | NUR ---
ED Nurse Note: Pt cleared by health care Provider for discharge. DC instructions/prescription was given and explained to pt and [employer] officer, verbalized understanding of teachings. All medical deviecs such as ID band removed. Pt is AAO x4, ambulatory and left with all personal belongings, accompany with [employer].
== END 2019-12-14 21:45 ==
LOC: EDBD 21:39 → EMR 21:45
DX: R07.9 Chest pain, unspecified (principal); Z76.5 Malingerer [conscious simulation]; Z88.6 Allergy status to analgesic agent; Z95.0 Presence of cardiac pacemaker; Z86.73 Personal history of transient ischemic attack (TIA), and cerebral infarction without residual deficits; I10 Essential (primary) hypertension
CPT/HCPCS: 99282